=== PATIENT | female | born 1960 | race Caucasian/White ===

== ENCOUNTER 2018-09-06 09:32 | Day surgery (SDC) | payer MEDICAID ==
[~2018-09-06] VITALS: Ht 170.2 cm; Wt 158.8 kg
[~2018-09-06 09:32] MED LIST: AMI2 PO; HYDR-4134 PO; NIFE30TA83 PO; PEPJ2 PO; WARF5TAB76 PO
[2018-09-06] MEDS ORDERED: CYCL10TA7 PO (11:27)
[2018-09-06] MEDS ORDERED: CARV6.2548 PO (11:27)
[2018-09-06] MEDS ORDERED: HYDR-4009 PO (11:27)
[2018-09-06] MEDS ORDERED: HYDR-4134 PO (11:27)
[2018-09-06] MEDS ORDERED: NIFE30TA83 PO (11:27)
[2018-09-06] MEDS ORDERED: FAMO20TA8 PO (11:27)
[2018-09-06] MEDS ORDERED: WARF6TAB48 PO (11:27)
[2018-09-06 11:32] LABS: BASOPHILS % 1.1 % (0.0-2.0); EOSINOPHILS % 2.7 % (0.0-5.0); HEMATOCRIT. 36.3 % (36.0-48.0); HEMOGLOBIN. 11.7 g/dL (12.0-16.0); LYMPHOCYTES % 23.1 % (20.0-50.0); MEAN CORPUSCULAR HEMOGLOBIN 23.6 pg (28.0-32.0); MEAN CORPUSCULAR VOLUME 73.2 fL (81.0-99.0); MEAN PLATELET VOLUME 9.1 fl (7.4-10.4); MONOCYTES % 12.5 % (2.0-8.0); NEUTROPHILS % 60.6 % (40.0-76.0); PLATELET 309 x1000/uL (130-400); RED BLOOD CELL COUNT 4.95 mill/uL (4.2-5.4); RED CELL DISTRIBUTION WIDTH 20.8 % (11.6-14.6)
[2018-09-06 11:37] LABS: CHLORIDE 106 mEq/L (98-107)
[2018-09-06] MEDS ORDERED: NICARDIPINE 100MCG/ML 10ML VIAL (CATH LAB) IV ONE (11:37)
[2018-09-06] MEDS ORDERED: HEPARIN SODIUM 1,000 UNIT/1ML VIAL IV ONE (11:37)
[2018-09-06] MEDS ORDERED: NITROGLYCERIN 50MCG/ML 10ML VIAL (CATH LAB) IV ONE (11:37)
[2018-09-06 11:49] LABS: PARTIAL THROMBOPLASTIN TIME 34.8 sec (23.4-31.0)
[2018-09-06 12:02] LABS: HCG SCREEN NEGATIVE
[2018-09-06] MEDS ORDERED: LIDOCAINE HCL 1% 20ML VIAL (Pyxis) INJ ONE (12:03)
[2018-09-06] MEDS ORDERED: IOHEXOL-300 100 ML BOTTLE ONE (12:03)
[2018-09-06] MEDS ORDERED: FENTANYL CITRATE/PF 50MCG/ML 2ML VIAL ONE (12:04)
[2018-09-06] MEDS ORDERED: MIDAZOLAM HCL 2 MG/2 ML VIAL ONE (12:04)
[2018-09-06] MEDS ORDERED: MORPHINE SULFATE 4 MG/ML CPJ (NOT FOR IM USE) IV PRN (12:45)
[2018-09-06] MEDS ORDERED: ONDANSETRON HCL 4MG/2ML INJ IV PRN (12:45)
[2018-09-06] MEDS ORDERED: ACETAMINOPHEN 325MG TABLET PO PRN (12:45)
== END 2018-09-06 16:15 | disposition home or self-care (01) ==
LOC: CCL 09:32
PROVIDERS: ATTEND Internal Medicine Cardiovascular Disease
DX: Q24.5 Malformation of coronary vessels (principal); R94.39 Abnormal result of other cardiovascular function study; I11.9 Hypertensive heart disease without heart failure; E66.01 Morbid (severe) obesity due to excess calories; I08.0 Rheumatic disorders of both mitral and aortic valves; Z79.01 Long term (current) use of anticoagulants; Z79.899 Other long term (current) drug therapy; Z98.890 Other specified postprocedural states; Z68.43 Body mass index [BMI] 50.0-59.9, adult
CPT/HCPCS: 36415; 80048; 84703; 85025; 85610; 85730; 93005; 93458; 99152; C1887; J1644; J2250; J3010; J3490; Q9967; C1769; C1893; G0500

== ENCOUNTER 2020-02-14 10:09 | Inpatient (IN) | payer MEDICAID ==
[2020-02-13 12:56] VITALS: BP 157/75
[2020-02-14] VITALS (38 sets, daily range): BP systolic 108–154; BP diastolic 56–84
[~2020-02-14] VITALS: Ht 170.2 cm; Wt 190.5 kg
[~2020-02-14 10:09] MED LIST changes: -AMI2 PO; +BUPR-74 MT; +CARV12.545 MT; +CHLO25TA2 MT; +ESCI10TA61 MT; +GABA-531 MT; +HYDR-4009 PO; -HYDR-4134 PO; +HYDR-4135 MT; -NIFE30TA83 PO; +PANT20TA3 MT; -PEPJ2 PO; -WARF5TAB76 PO; +WARF6TAB48 PO
[2020-02-14] MEDS ORDERED: LORAZEPAM 2MG/ML CPJ IV ONE (10:15)
[2020-02-14] MEDS ORDERED: ONDANSETRON HCL 4MG/2ML INJ IV ONE (10:15)
[2020-02-14] MEDS ORDERED: LABETALOL 5MG/ML SYR 20 MG/4 ML SYRINGE IV ONE ×2 (10:15→10:21)
[2020-02-14] MEDS ORDERED: ONDANSETRON HCL 4MG/2ML INJ ONE (10:21)
[2020-02-14] MEDS ORDERED: IOHEXOL-350 100 ML BOTTLE ONE (10:26)
[2020-02-14 10:32] LABS: BASOPHILS % 0.6 % (0.0-2.0); EOSINOPHILS % 0.5 % (0.0-5.0); HEMOGLOBIN. 12.4 g/dL (12.0-16.0); MEAN CORPUSCULAR HEMOGLOBIN 25.6 pg (28.0-32.0); MEAN CORPUSCULAR VOLUME 80.4 fL (81.0-99.0); MEAN PLATELET VOLUME 8.6 fl (7.4-10.4); MONOCYTES % 8.6 % (2.0-8.0); NEUTROPHILS % 76.3 % (40.0-76.0); PLATELET 301 x1000/uL (130-400); RED BLOOD CELL COUNT 4.85 mill/uL (4.2-5.4); RED CELL DISTRIBUTION WIDTH 19.6 % (11.6-14.6)
[2020-02-14 10:35] LABS: CHLORIDE 104 mEq/L (98-107)
[2020-02-14 10:39] LABS: ETHANOL BLOOD < 10 mg/dL
[2020-02-14 10:40] LABS: INR 0.9; PROTHROMBIN TIME 10.3 sec (9.6-11.0)
[2020-02-14 10:42] LABS: LDL CHOLESTEROL 138 mg/dL (5-100)
[2020-02-14] MEDS ORDERED: NICARDIPINE 40MG/200ML PREMIX 200 ML IV STA (10:42)
[2020-02-14 10:44] LABS: CREATINE KINASE 75 IU/L (26-192)
[2020-02-14] MEDS ORDERED: DEXAMETHASONE 10 MG/ML VIAL IV ONE (10:45)
[2020-02-14] MEDS ORDERED: LEVETIRACETAM 500MG PREMIX 100 ML IV ONE (10:45)
[2020-02-14] MEDS ORDERED: MANNITOL 12.5G (25%) VIAL 50ML IV ONE (10:45)
[2020-02-14] MEDS ORDERED: VECURONIUM BROMIDE 10 MG/VIAL IV ONE ×2 (11:15→12:39)
[2020-02-14] MEDS ORDERED: ETOMIDATE 2MG/ML 10ML VIAL IV ONE (11:15)
[2020-02-14] MEDS ORDERED: SUCCINYLCHOLINE CHLORIDE 200MG/10ML IV ONE (11:15)
[2020-02-14] MEDS ORDERED: PROPOFOL 10MG/ML 100ML 100 ML IV ONE (11:15)
[2020-02-14] MEDS ORDERED: BACITRACIN 15GM TUBE TOP ONE (11:16)
[2020-02-14] MEDS ORDERED: THROMBIN (BOVINE) 5000 UNITS/VIAL TOP ONE (11:16)
[2020-02-14] MEDS ORDERED: NORMAL SALINE 0.9% 10 ML SYR ONE (11:16)
[2020-02-14] MEDS ORDERED: LIDOCAINE HCL/EPINEPHRINE 1%-EPI 1:100,000 20 ML VIAL ONE (11:17)
[2020-02-14] MEDS ORDERED: BACITRACIN 50,000 UNITS/VIAL ONE (11:17)
[2020-02-14] MEDS ORDERED: LACTATED RINGERS 3,000 ML IV ONE (11:17)
[2020-02-14 11:31] LABS: BG CARBOXYHEMOGLOBIN 0.3 % (0.5-1.5); BG DEOXYHEMOGLOBIN 0.5 % (0.0-5.0); BG FRACTION INSPIRED OXYGEN 100; BG HCO3 ACT 24.5 mmol/L (22.0-26.0); BG METHEMOGLOBIN 0.2 % (0.0-1.5); BG OXYGEN SATURATION 99.5 % (92.0-98.5); BG PCO2 39.1 mmHg (35.0-45.0); BG PH 7.414 (7.350-7.450); BG PO2 344.5 mmHg (75.0-100.0); BG SAMPLE SITE RIGHT RADIAL; BG TIDAL VOLUME(mL) 650 mL; BG TOTAL HEMOGLOBIN 12.4 g/dL (12.0-18.0); BG VENT MODE VENT - A/C; BG VENT RATE 18 set
[2020-02-14] MEDS ORDERED: ONDANSETRON HCL 4MG/2ML INJ IV PRN (11:45)
[2020-02-14] MEDS ORDERED: DEXT 5%/LACTATED RINGERS 1,000 ML IV SCH (11:45)
[2020-02-14] MEDS ORDERED: LEVETIRACETAM 500 MG in SODIUM CHLORIDE 0.9% 100 ML IV SCH (11:45)
[2020-02-14] MEDS ORDERED: PROPOFOL 200MG/20ML VIAL IV ONE (12:17)
[2020-02-14] MEDS ORDERED: GLYCOPYRROLATE 0.2 MG/ML 2ML VIAL ONE (12:38)
[2020-02-14] MEDS ORDERED: EPHEDRINE SULFATE 50MG/ML VIAL ONE (12:39)
[2020-02-14] MEDS ORDERED: SODIUM CHLORIDE 0.9% 10ML VIAL ONE (12:39)
[2020-02-14] MEDS ORDERED: CEFAZOLIN SODIUM 1000MG/VIAL ONE (12:39)
[2020-02-14] MEDS ORDERED: MORPHINE SULFATE 2 MG/ML CPJ (NOT FOR IM USE) IV PRN (12:45)
[2020-02-14] MEDS: DEXT 5%/LACTATED RINGERS 1,000 ML IV SCH (13:30)
[2020-02-14] MEDS ORDERED: NICARDIPINE 100 MG in SODIUM CHLORIDE 0.9% 60 ML IV PRN ×4 (13:30)
[2020-02-14 13:50] LABS: BG BASE EXCESS 1.1 mmol/L (-2.0-2.0); BG DEOXYHEMOGLOBIN 2.6 % (0.0-5.0); BG FRACTION INSPIRED OXYGEN 100; BG HCO3 ACT 25.7 mmol/L (22.0-26.0); BG METHEMOGLOBIN 0.2 % (0.0-1.5); BG OXYGEN SATURATION 97.4 % (92.0-98.5); BG OXYHEMOGLOBIN 97.2 % (94.0-97.0); BG PCO2 40.9 mmHg (35.0-45.0); BG PH 7.416 (7.350-7.450); BG PO2 96.1 mmHg (75.0-100.0); BG SAMPLE SITE RIGHT RADIAL; BG TIDAL VOLUME(mL) 600 mL; BG TOTAL HEMOGLOBIN 12.6 g/dL (12.0-18.0); BG VENT MODE VENT - A/C; BG VENT RATE 18 set
[2020-02-14] MEDS: NICARDIPINE 100 MG in SODIUM CHLORIDE 0.9% 60 ML IV PRN ×2 (14:45→20:48)
[2020-02-14] MEDS ORDERED: MIDAZOLAM HCL 50 MG in DEXTROSE 5% WATER 40 ML IV PRN (15:15)
[2020-02-14] MEDS ORDERED: FENTANYL CITRATE/PF 500 MCG in SODIUM CHLORIDE 0.9% 40 ML IV PRN (17:00)
[2020-02-14] MEDS: FENTANYL 1,000 MCG in SODIUM CHLORIDE 0.9% 100 ML IV PRN (17:49)
[2020-02-14] MEDS: ATORVASTATIN CALCIUM 40MG TABLET PO SCH (20:48)
[2020-02-14] MEDS: MIDAZOLAM HCL 100 MG in DEXT 5% WATER 80 ML IV PRN (20:49)
[2020-02-14] MEDS: LEVETIRACETAM 500MG PREMIX 100 ML IV SCH (20:49)
[2020-02-14] MEDS: CEFAZOLIN 1000MG PREMIX 50 ML IV SCH (21:17)
[2020-02-14 23:06] LABS: CLARITY URINE CLEAR (CLEAR); COLOR URINE YELLOW (YELLOW); KETONES URINE NEGATIVE (NEGATIVE); LEUKOCYTE ESTERASE URINE NEGATIVE (NEGATIVE); NITRITE URINE NEGATIVE (NEGATIVE); OCCULT BLOOD URINE 2+ (NEGATIVE); PH URINE 5.5 (4.5-8.0); PROTEIN URINE 2+ (NEGATIVE); SPECIFIC GRAVITY URINE 1.026 (1.005-1.030); UROBILINOGEN URINE 0.2 E.U./dL (0.2-1.0)
[2020-02-14 23:16] LABS: *AMPHETAMINES SCREEN URINE NEGATIVE (NEGATIVE); *BARBITURATES SCREEN URINE NEGATIVE (NEGATIVE); *BENZODIAZEPINES SCREEN URINE PRESUMTIVE POSITIVE (NEGATIVE); *COCAINE SCREEN URINE NEGATIVE (NEGATIVE)
[2020-02-14 23:17] LABS: CANNABINOID URINE SCREEN NEGATIVE (NEGATIVE); METHADONE URINE SCREEN NEGATIVE (NEGATIVE); OPIATES URINE SCREEN PRESUMTIVE POSITIVE (NEGATIVE); PHENCYCLIDINE URINE SCREEN NEGATIVE (NEGATIVE)
[2020-02-15] VITALS (87 sets, daily range): BP systolic 93–134; BP diastolic 48–78
[2020-02-15] MEDS: MORPHINE SULFATE 4 MG/ML CPJ (NOT FOR IM USE) IV PRN ×2 (00:55→21:17)
[2020-02-15] MEDS: NICARDIPINE 100 MG in SODIUM CHLORIDE 0.9% 60 ML IV PRN (03:47)
[2020-02-15] MEDS: CEFAZOLIN 1000MG PREMIX 50 ML IV SCH ×3 (04:14→23:16)
[2020-02-15 05:24] LABS: HEMATOCRIT. 32.1 % (36.0-48.0); HEMOGLOBIN. 10.5 g/dL (12.0-16.0); MEAN CORPUSCULAR HEMOGLOBIN 25.8 pg (28.0-32.0); MEAN CORPUSCULAR VOLUME 78.6 fL (81.0-99.0); MEAN PLATELET VOLUME 8.7 fl (7.4-10.4); PLATELET 260 x1000/uL (130-400); RED BLOOD CELL COUNT 4.08 mill/uL (4.2-5.4); RED CELL DISTRIBUTION WIDTH 19.6 % (11.6-14.6)
[2020-02-15] MEDS: MIDAZOLAM HCL 100 MG in DEXT 5% WATER 80 ML IV PRN ×2 (07:13→17:30)
[2020-02-15] MEDS: FENTANYL 1,000 MCG in SODIUM CHLORIDE 0.9% 100 ML IV PRN ×3 (07:14→20:42)
[2020-02-15 07:50] LABS: BG BASE EXCESS 1.3 mmol/L (-2.0-2.0); BG CARBOXYHEMOGLOBIN 0.3 % (0.5-1.5); BG DEOXYHEMOGLOBIN 6.8 % (0.0-5.0); BG FRACTION INSPIRED OXYGEN 80; BG HCO3 ACT 26.3 mmol/L (22.0-26.0); BG METHEMOGLOBIN 0.2 % (0.0-1.5); BG OXYGEN SATURATION 93.2 % (92.0-98.5); BG OXYHEMOGLOBIN 92.7 % (94.0-97.0); BG PCO2 43.3 mmHg (35.0-45.0); BG PH 7.402 (7.350-7.450); BG PO2 69.5 mmHg (75.0-100.0); BG SAMPLE SITE RIGHT RADIAL; BG TIDAL VOLUME(mL) 500 mL; BG TOTAL HEMOGLOBIN 11.4 g/dL (12.0-18.0); BG VENT MODE VENT - A/C; BG VENT RATE 18 set
[2020-02-15] MEDS ORDERED: LIDOCAINE HCL 1% 20ML VIAL (Pyxis) INJ ONE (08:07)
[2020-02-15 09:00] LABS: NUCLEATED RED BLOOD CELLS 1 /100 WBC
[2020-02-15 09:01] LABS: PLATELET ESTIMATE NORMAL
[2020-02-15] MEDS: DEXT 5%/LACTATED RINGERS 1,000 ML IV SCH ×2 (09:26→23:15)
[2020-02-15] MEDS: LEVETIRACETAM 500MG PREMIX 100 ML IV SCH ×2 (09:26→23:15)
[2020-02-15] MEDS: PANTOPRAZOLE SODIUM 40 MG/VIAL IV SCH (09:44)
[2020-02-15] MEDS: ATORVASTATIN CALCIUM 40MG TABLET PO SCH (20:39)
[2020-02-16] VITALS (100 sets, daily range): BP systolic 70–142; BP diastolic 30–78
[2020-02-16] MEDS: MORPHINE SULFATE 4 MG/ML CPJ (NOT FOR IM USE) IV PRN (00:14)
[2020-02-16] MEDS: NICARDIPINE 100 MG in SODIUM CHLORIDE 0.9% 60 ML IV PRN ×2 (03:11→19:49)
[2020-02-16] MEDS: MIDAZOLAM HCL 100 MG in DEXT 5% WATER 80 ML IV PRN ×2 (04:21→23:46)
[2020-02-16 07:23] LABS: HEMATOCRIT. 31.7 % (36.0-48.0); HEMOGLOBIN. 10.3 g/dL (12.0-16.0); MEAN CORPUSCULAR HEMOGLOBIN 25.7 pg (28.0-32.0); MEAN CORPUSCULAR VOLUME 79.2 fL (81.0-99.0); MEAN PLATELET VOLUME 8.9 fl (7.4-10.4); PLATELET 242 x1000/uL (130-400); RED CELL DISTRIBUTION WIDTH 19.5 % (11.6-14.6)
[2020-02-16] MEDS: CEFAZOLIN 1000MG PREMIX 50 ML IV SCH ×2 (09:08→16:02)
[2020-02-16] MEDS: LEVETIRACETAM 500MG PREMIX 100 ML IV SCH ×2 (09:08→20:57)
[2020-02-16 09:13] LABS: BG BASE EXCESS 1.3 mmol/L (-2.0-2.0); BG CARBOXYHEMOGLOBIN 0.3 % (0.5-1.5); BG DEOXYHEMOGLOBIN 3.6 % (0.0-5.0); BG FRACTION INSPIRED OXYGEN 80; BG HCO3 ACT 25.8 mmol/L (22.0-26.0); BG METHEMOGLOBIN 0.2 % (0.0-1.5); BG OXYGEN SATURATION 96.4 % (92.0-98.5); BG OXYHEMOGLOBIN 95.9 % (94.0-97.0); BG PCO2 40.5 mmHg (35.0-45.0); BG PH 7.422 (7.350-7.450); BG PO2 91.6 mmHg (75.0-100.0); BG SAMPLE SITE RIGHT RADIAL; BG TIDAL VOLUME(mL) 500 mL; BG TOTAL HEMOGLOBIN 11.6 g/dL (12.0-18.0); BG VENT MODE VENT - A/C; BG VENT RATE 18 set
[2020-02-16] MEDS: PANTOPRAZOLE SODIUM 40 MG/VIAL IV SCH (09:17)
[2020-02-16] MEDS: FENTANYL 1,000 MCG in SODIUM CHLORIDE 0.9% 100 ML IV PRN (10:00)
[2020-02-16] MEDS: LOSARTAN POTASSIUM 100 MG TABLET PO SCH (15:19)
[2020-02-16] MEDS: DEXT 5%/LACTATED RINGERS 1,000 ML IV SCH (15:20)
[2020-02-16] MEDS: ATORVASTATIN CALCIUM 40MG TABLET PO SCH (20:57)
[2020-02-16] MEDS: AMLODIPINE 5MG TABLET PO SCH (21:00)
[2020-02-16 23:16] LABS: PLATELET ESTIMATE NORMAL
[2020-02-17] VITALS (98 sets, daily range): BP systolic 90–151; BP diastolic 32–103
[2020-02-17] MEDS ORDERED: SODIUM CHLORIDE 0.9% 500 ML IV NR (02:30)
[2020-02-17 06:25] LABS: HEMATOCRIT. 32.8 % (36.0-48.0); HEMOGLOBIN. 10.6 g/dL (12.0-16.0); MEAN CORPUSCULAR HEMOGLOBIN 26.1 pg (28.0-32.0); MEAN CORPUSCULAR VOLUME 80.9 fL (81.0-99.0); MEAN PLATELET VOLUME 8.7 fl (7.4-10.4); PLATELET 201 x1000/uL (130-400); RED BLOOD CELL COUNT 4.05 mill/uL (4.2-5.4); RED CELL DISTRIBUTION WIDTH 19.5 % (11.6-14.6)
[2020-02-17] MEDS: DEXT 5%/LACTATED RINGERS 1,000 ML IV SCH ×2 (06:34→08:59)
[2020-02-17] MEDS: LEVETIRACETAM 500MG PREMIX 100 ML IV SCH ×2 (09:00→20:36)
[2020-02-17] MEDS: CEFAZOLIN 1000MG PREMIX 50 ML IV SCH ×4 (09:00→23:09)
[2020-02-17] MEDS: PANTOPRAZOLE SODIUM 40 MG/VIAL IV SCH (09:01)
[2020-02-17] MEDS: LOSARTAN POTASSIUM 100 MG TABLET PO SCH (09:02)
[2020-02-17] MEDS: AMLODIPINE 5MG TABLET PO SCH ×2 (09:02→20:35)
[2020-02-17 11:41] LABS: PLATELET ESTIMATE NORMAL
[2020-02-17] MEDS: FENTANYL 1,000 MCG in SODIUM CHLORIDE 0.9% 100 ML IV PRN (15:23)
[2020-02-17] MEDS: HYDRALAZINE HCL 100MG TABLET PO SCH ×2 (15:27→21:05)
[2020-02-17] MEDS: ATORVASTATIN CALCIUM 40MG TABLET PO SCH (20:35)
[2020-02-18] VITALS (95 sets, daily range): BP systolic 101–190; BP diastolic 17–122
[2020-02-18] MEDS: MORPHINE SULFATE 4 MG/ML CPJ (NOT FOR IM USE) IV PRN ×2 (00:53→12:45)
[2020-02-18] MEDS: NICARDIPINE 100 MG in SODIUM CHLORIDE 0.9% 60 ML IV PRN ×2 (01:14→16:30)
[2020-02-18] MEDS: DEXT 5%/LACTATED RINGERS 1,000 ML IV SCH ×3 (02:26→20:00)
[2020-02-18] MEDS: HYDRALAZINE HCL 100MG TABLET PO SCH ×3 (05:00→21:04)
[2020-02-18 06:35] LABS: HEMATOCRIT. 31.5 % (36.0-48.0); HEMOGLOBIN. 10.3 g/dL (12.0-16.0); MEAN CORPUSCULAR HEMOGLOBIN 26.1 pg (28.0-32.0); MEAN CORPUSCULAR VOLUME 79.3 fL (81.0-99.0); MEAN PLATELET VOLUME 8.9 fl (7.4-10.4); RED BLOOD CELL COUNT 3.97 mill/uL (4.2-5.4); RED CELL DISTRIBUTION WIDTH 19.6 % (11.6-14.6)
[2020-02-18 06:46] LABS: BG BASE EXCESS -0.6 mmol/L (-2.0-2.0); BG CARBOXYHEMOGLOBIN 0.3 % (0.5-1.5); BG DEOXYHEMOGLOBIN 2.5 % (0.0-5.0); BG HCO3 ACT 23.8 mmol/L (22.0-26.0); BG METHEMOGLOBIN 0.1 % (0.0-1.5); BG OXYGEN SATURATION 97.5 % (92.0-98.5); BG OXYHEMOGLOBIN 97.1 % (94.0-97.0); BG PCO2 37.9 mmHg (35.0-45.0); BG PH 7.415 (7.350-7.450); BG PO2 99.9 mmHg (75.0-100.0); BG SAMPLE SITE RIGHT BRACHIAL; BG TIDAL VOLUME(mL) 500 mL; BG TOTAL HEMOGLOBIN 10.6 g/dL (12.0-18.0); BG VENT MODE VENT - A/C; BG VENT RATE 18 set
[2020-02-18] MEDS: AMLODIPINE 5MG TABLET PO SCH ×2 (08:48→21:05)
[2020-02-18] MEDS: PANTOPRAZOLE SODIUM 40 MG/VIAL IV SCH (08:48)
[2020-02-18] MEDS: CEFAZOLIN 1000MG PREMIX 50 ML IV SCH ×3 (08:48→23:10)
[2020-02-18] MEDS: LEVETIRACETAM 500MG PREMIX 100 ML IV SCH ×2 (08:48→21:04)
[2020-02-18] MEDS ORDERED: MORPHINE SULFATE 4 MG/ML CPJ (NOT FOR IM USE) IV PRN (13:15)
[2020-02-18 14:02] LABS: PLATELET ESTIMATE NORMAL
[2020-02-18 14:03] LABS: PLATELET 193 x1000/uL (130-400)
[2020-02-18] MEDS: CLONIDINE 0.1MG TABLET PO SCH (16:52)
[2020-02-18] MEDS: ATORVASTATIN CALCIUM 40MG TABLET PO SCH (21:04)
[2020-02-19] VITALS (98 sets, daily range): BP systolic 117–163; BP diastolic 61–84
[2020-02-19] MEDS: NICARDIPINE 100 MG in SODIUM CHLORIDE 0.9% 60 ML IV PRN ×2 (01:21→17:56)
[2020-02-19] MEDS: HYDRALAZINE HCL 100MG TABLET PO SCH ×3 (05:18→22:59)
[2020-02-19 06:18] LABS: HEMATOCRIT. 31.8 % (36.0-48.0); HEMOGLOBIN. 10.6 g/dL (12.0-16.0); MEAN CORPUSCULAR HEMOGLOBIN 26.6 pg (28.0-32.0); MEAN CORPUSCULAR VOLUME 79.8 fL (81.0-99.0); MEAN PLATELET VOLUME 9.4 fl (7.4-10.4); PLATELET 192 x1000/uL (130-400); RED BLOOD CELL COUNT 3.99 mill/uL (4.2-5.4)
[2020-02-19] MEDS: DEXT 5%/LACTATED RINGERS 1,000 ML IV SCH ×2 (07:29→17:49)
[2020-02-19] MEDS: CEFAZOLIN 1000MG PREMIX 50 ML IV SCH ×2 (09:00→17:13)
[2020-02-19] MEDS: LEVETIRACETAM 500MG PREMIX 100 ML IV SCH ×2 (10:00→20:24)
[2020-02-19] MEDS: PANTOPRAZOLE SODIUM 40 MG/VIAL IV SCH (10:00)
[2020-02-19] MEDS: AMLODIPINE 5MG TABLET PO SCH ×2 (10:00→20:24)
[2020-02-19] MEDS: CLONIDINE 0.1MG TABLET PO SCH ×2 (10:00→17:10)
[2020-02-19 16:28] LABS: PLATELET ESTIMATE NORMAL
[2020-02-19] MEDS: ATORVASTATIN CALCIUM 40MG TABLET PO SCH (20:24)
[2020-02-20] VITALS (88 sets, daily range): BP systolic 116–164; BP diastolic 56–89
[2020-02-20] MEDS: NICARDIPINE 100 MG in SODIUM CHLORIDE 0.9% 60 ML IV PRN ×3 (02:03→17:15)
[2020-02-20] MEDS: DEXT 5%/LACTATED RINGERS 1,000 ML IV SCH ×3 (03:49→23:49)
[2020-02-20] MEDS: HYDRALAZINE HCL 100MG TABLET PO SCH ×3 (06:51→22:15)
[2020-02-20] MEDS: LEVETIRACETAM 500MG PREMIX 100 ML IV SCH ×2 (07:51→20:56)
[2020-02-20] MEDS: MORPHINE SULFATE 4 MG/ML CPJ (NOT FOR IM USE) IV PRN (07:51)
[2020-02-20] MEDS: PANTOPRAZOLE SODIUM 40 MG/VIAL IV SCH (07:52)
[2020-02-20] MEDS: CLONIDINE 0.1MG TABLET PO SCH (07:52)
[2020-02-20] MEDS: AMLODIPINE 5MG TABLET PO SCH ×2 (07:52→20:56)
[2020-02-20 09:03] LABS: BG BASE EXCESS 0.6 mmol/L (-2.0-2.0); BG CARBOXYHEMOGLOBIN 0.3 % (0.5-1.5); BG DEOXYHEMOGLOBIN 3.4 % (0.0-5.0); BG FRACTION INSPIRED OXYGEN 65; BG HCO3 ACT 23.1 mmol/L (22.0-26.0); BG METHEMOGLOBIN 0.3 % (0.0-1.5); BG OXYGEN SATURATION 96.6 % (92.0-98.5); BG PCO2 30.2 mmHg (35.0-45.0); BG PH 7.502 (7.350-7.450); BG PO2 88.3 mmHg (75.0-100.0); BG SAMPLE SITE RIGHT RADIAL; BG TIDAL VOLUME(mL) 500 mL; BG TOTAL HEMOGLOBIN 11.2 g/dL (12.0-18.0); BG VENT MODE VENT - A/C; BG VENT RATE 18 set
[2020-02-20] MEDS: CLONIDINE 0.1MG TABLET PO PRN (14:37)
[2020-02-20] MEDS: CLONIDINE 0.2MG TABLET PO SCH ×2 (14:41→22:15)
[2020-02-20] MEDS: ATORVASTATIN CALCIUM 40MG TABLET PO SCH (20:55)
[2020-02-21] VITALS (91 sets, daily range): BP systolic 104–163; BP diastolic 45–84
[2020-02-21] MEDS: NICARDIPINE 100 MG in SODIUM CHLORIDE 0.9% 60 ML IV PRN ×3 (01:23→20:25)
[2020-02-21] MEDS: CLONIDINE 0.2MG TABLET PO SCH (05:44)
[2020-02-21] MEDS: HYDRALAZINE HCL 100MG TABLET PO SCH ×3 (05:44→21:12)
[2020-02-21 06:34] LABS: HEMATOCRIT. 33.6 % (36.0-48.0); HEMOGLOBIN. 10.9 g/dL (12.0-16.0); MEAN CORPUSCULAR HEMOGLOBIN 26.1 pg (28.0-32.0); MEAN CORPUSCULAR VOLUME 80.5 fL (81.0-99.0); PLATELET 182 x1000/uL (130-400); RED BLOOD CELL COUNT 4.17 mill/uL (4.2-5.4); RED CELL DISTRIBUTION WIDTH 20.2 % (11.6-14.6)
[2020-02-21] MEDS: LEVETIRACETAM 500MG PREMIX 100 ML IV SCH ×2 (09:29→20:25)
[2020-02-21] MEDS: DEXT 5%/LACTATED RINGERS 1,000 ML IV SCH (09:30)
[2020-02-21] MEDS: PANTOPRAZOLE SODIUM 40 MG/VIAL IV SCH (09:30)
[2020-02-21] MEDS: AMLODIPINE 5MG TABLET PO SCH ×2 (09:30→20:25)
[2020-02-21] MEDS: MORPHINE SULFATE 4 MG/ML CPJ (NOT FOR IM USE) IV PRN ×2 (12:01→18:01)
[2020-02-21] MEDS: CLONIDINE 0.3MG TABLET PO SCH ×2 (13:32→21:12)
[2020-02-21 14:20] LABS: PLATELET ESTIMATE NORMAL
[2020-02-21] MEDS: ATORVASTATIN CALCIUM 40MG TABLET PO SCH (20:25)
[2020-02-22] VITALS (94 sets, daily range): BP systolic 118–168; BP diastolic 55–99
[2020-02-22] MEDS: DEXT 5%/LACTATED RINGERS 1,000 ML IV SCH ×2 (01:09→12:35)
[2020-02-22] MEDS: NICARDIPINE 100 MG in SODIUM CHLORIDE 0.9% 60 ML IV PRN ×3 (04:21→17:10)
[2020-02-22] MEDS: HYDRALAZINE HCL 100MG TABLET PO SCH ×3 (05:25→23:18)
[2020-02-22] MEDS: CLONIDINE 0.3MG TABLET PO SCH ×3 (05:25→23:18)
[2020-02-22] MEDS: MORPHINE SULFATE 4 MG/ML CPJ (NOT FOR IM USE) IV PRN ×2 (05:36→12:11)
[2020-02-22 06:05] LABS: INR 1.1; PROTHROMBIN TIME 11.4 sec (9.6-11.0)
[2020-02-22 06:13] LABS: HEMATOCRIT. 30.5 % (36.0-48.0); HEMOGLOBIN. 10.1 g/dL (12.0-16.0); MEAN CORPUSCULAR HEMOGLOBIN 26.4 pg (28.0-32.0); MEAN CORPUSCULAR VOLUME 79.5 fL (81.0-99.0); MEAN PLATELET VOLUME 9.3 fl (7.4-10.4); PLATELET 185 x1000/uL (130-400); RED BLOOD CELL COUNT 3.84 mill/uL (4.2-5.4); RED CELL DISTRIBUTION WIDTH 19.3 % (11.6-14.6)
[2020-02-22] MEDS: PANTOPRAZOLE SODIUM 40 MG/VIAL IV SCH (08:18)
[2020-02-22] MEDS: LEVETIRACETAM 500MG PREMIX 100 ML IV SCH ×2 (08:18→23:17)
[2020-02-22] MEDS: AMLODIPINE 5MG TABLET PO SCH ×2 (08:18→21:02)
[2020-02-22 09:09] LABS: BG BASE EXCESS 0.5 mmol/L (-2.0-2.0); BG CARBOXYHEMOGLOBIN 0.3 % (0.5-1.5); BG DEOXYHEMOGLOBIN 3.6 % (0.0-5.0); BG FRACTION INSPIRED OXYGEN 60; BG HCO3 ACT 23.6 mmol/L (22.0-26.0); BG METHEMOGLOBIN 0.3 % (0.0-1.5); BG OXYGEN SATURATION 96.4 % (92.0-98.5); BG OXYHEMOGLOBIN 95.8 % (94.0-97.0); BG PCO2 32.3 mmHg (35.0-45.0); BG PH 7.482 (7.350-7.450); BG SAMPLE SITE RIGHT RADIAL; BG TIDAL VOLUME(mL) 500 mL; BG VENT MODE VENT - A/C; BG VENT RATE 14 set
[2020-02-22 09:55] LABS: PLATELET ESTIMATE NORMAL
[2020-02-22] MEDS ORDERED: PIPERACILLIN/TAZOBACTAM 3.375 G in DEXT 5% WATER 100 ML IV SCH (12:15)
[2020-02-22] MEDS ORDERED: BACTERIOSTATIC SODIUM CHLORIDE 0.9% 30ML VIAL IJ ONE (12:49)
[2020-02-22] MEDS ORDERED: LIDOCAINE HCL/EPINEPHRINE 1%-EPI 1:100,000 20 ML VIAL ONE (13:12)
[2020-02-22] MEDS: PIPERACILLIN SODIUM/TAZOBACTAM 4.5 G in DEXT 5% WATER 100 ML IV SCH ×2 (13:16→21:01)
[2020-02-22] MEDS ORDERED: MIDAZOLAM HCL 2 MG/2 ML VIAL ONE (13:24)
[2020-02-22] MEDS ORDERED: ROCURONIUM BROMIDE 10MG/ML VIAL 5ML IV ONE (13:24)
[2020-02-22] MEDS: CLONIDINE 0.1MG TABLET PO PRN (15:15)
[2020-02-22] MEDS: ATORVASTATIN CALCIUM 40MG TABLET PO SCH (21:01)
[2020-02-22] MEDS: MINOXIDIL 2.5MG TABLET PO SCH (21:02)
[2020-02-22] MEDS: METOPROLOL TARTRATE 50MG TABLET PO SCH (21:05)
[2020-02-22] MEDS: IPRATROPIUM/ALBUTEROL 0.5-3(2.5)MG/3ML NEB HHN PRN (21:32)
[2020-02-23] VITALS (89 sets, daily range): BP systolic 101–158; BP diastolic 47–82
[2020-02-23] MEDS: PIPERACILLIN SODIUM/TAZOBACTAM 4.5 G in DEXT 5% WATER 100 ML IV SCH ×4 (02:43→22:43)
[2020-02-23] MEDS: IPRATROPIUM/ALBUTEROL 0.5-3(2.5)MG/3ML NEB HHN PRN (04:27)
[2020-02-23] MEDS: HYDRALAZINE HCL 100MG TABLET PO SCH ×3 (05:40→22:00)
[2020-02-23] MEDS: CLONIDINE 0.3MG TABLET PO SCH ×3 (05:41→22:00)
[2020-02-23 06:24] LABS: HEMATOCRIT. 31.3 % (36.0-48.0); HEMOGLOBIN. 10.2 g/dL (12.0-16.0); MEAN CORPUSCULAR HEMOGLOBIN 26.2 pg (28.0-32.0); MEAN CORPUSCULAR VOLUME 80.7 fL (81.0-99.0); MEAN PLATELET VOLUME 9.2 fl (7.4-10.4); PLATELET 194 x1000/uL (130-400); RED BLOOD CELL COUNT 3.87 mill/uL (4.2-5.4); RED CELL DISTRIBUTION WIDTH 20.4 % (11.6-14.6)
[2020-02-23 08:33] LABS: BG BASE EXCESS 0.4 mmol/L (-2.0-2.0); BG CARBOXYHEMOGLOBIN 0.3 % (0.5-1.5); BG FRACTION INSPIRED OXYGEN 60; BG HCO3 ACT 22.8 mmol/L (22.0-26.0); BG METHEMOGLOBIN 0.3 % (0.0-1.5); BG OXYHEMOGLOBIN 96.4 % (94.0-97.0); BG PCO2 29.3 mmHg (35.0-45.0); BG PH 7.508 (7.350-7.450); BG PO2 91.9 mmHg (75.0-100.0); BG SAMPLE SITE RIGHT BRACHIAL; BG TIDAL VOLUME(mL) 500 mL; BG TOTAL HEMOGLOBIN 10.6 g/dL (12.0-18.0); BG VENT MODE VENT - A/C; BG VENT RATE 14 set
[2020-02-23 08:33] LABS: PLATELET ESTIMATE NORMAL
[2020-02-23] MEDS: LEVETIRACETAM 500MG PREMIX 100 ML IV SCH ×2 (09:10→23:33)
[2020-02-23] MEDS: PANTOPRAZOLE SODIUM 40 MG/VIAL IV SCH (09:11)
[2020-02-23] MEDS: AMLODIPINE 5MG TABLET PO SCH ×2 (09:13→21:00)
[2020-02-23] MEDS: METOPROLOL TARTRATE 50MG TABLET PO SCH ×2 (09:14→21:00)
[2020-02-23] MEDS ORDERED: FUROSEMIDE 20MG/2ML VIAL IVP NR (09:15)
[2020-02-23] MEDS: MINOXIDIL 2.5MG TABLET PO SCH ×2 (09:46→21:00)
[2020-02-23] MEDS: DOCUSATE SODIUM 250MG CAPSULE PO SCH (09:46)
[2020-02-23] MEDS: DEXT 5%/LACTATED RINGERS 1,000 ML IV SCH (09:48)
[2020-02-23] MEDS: NICARDIPINE 100 MG in SODIUM CHLORIDE 0.9% 60 ML IV PRN (09:56)
[2020-02-23] MEDS: ACETYLCYSTEINE 100MG/ML 10% VIAL 4ML INH SCH (12:00)
[2020-02-23] MEDS: IPRATROPIUM/ALBUTEROL 0.5-3(2.5)MG/3ML NEB HHN SCH ×2 (12:17→20:50)
[2020-02-23] MEDS ORDERED: FENTANYL CITRATE/PF 50MCG/ML 2ML VIAL ONE (13:05)
[2020-02-23] MEDS ORDERED: MIDAZOLAM HCL 5 MG/5 ML VIAL ONE (13:05)
[2020-02-23] MEDS ORDERED: MIDAZOLAM HCL 5 MG/5 ML VIAL IV PRN (13:39)
[2020-02-23] MEDS ORDERED: FENTANYL CITRATE/PF 50MCG/ML 2ML VIAL IV PRN (13:40)
[2020-02-23] MEDS: ATORVASTATIN CALCIUM 40MG TABLET PO SCH (21:00)
[2020-02-24] VITALS (35 sets, daily range): BP systolic 98–150; BP diastolic 53–92
[2020-02-24] MEDS: PIPERACILLIN SODIUM/TAZOBACTAM 4.5 G in DEXT 5% WATER 100 ML IV SCH ×4 (02:27→21:24)
[2020-02-24] MEDS: IPRATROPIUM/ALBUTEROL 0.5-3(2.5)MG/3ML NEB HHN SCH ×4 (02:42→20:43)
[2020-02-24] MEDS: HYDRALAZINE HCL 100MG TABLET PO SCH ×3 (05:07→21:32)
[2020-02-24] MEDS: CLONIDINE 0.3MG TABLET PO SCH ×3 (05:07→22:00)
[2020-02-24 07:17] LABS: HEMATOCRIT. 27.2 % (36.0-48.0); HEMOGLOBIN. 8.8 g/dL (12.0-16.0); MEAN CORPUSCULAR HEMOGLOBIN 26.3 pg (28.0-32.0); MEAN PLATELET VOLUME 9.2 fl (7.4-10.4); PLATELET 167 x1000/uL (130-400); RED BLOOD CELL COUNT 3.36 mill/uL (4.2-5.4); RED CELL DISTRIBUTION WIDTH 19.6 % (11.6-14.6)
[2020-02-24] MEDS: PANTOPRAZOLE SODIUM 40 MG/VIAL IV SCH (08:43)
[2020-02-24] MEDS: DOCUSATE SODIUM 250MG CAPSULE PO SCH (08:43)
[2020-02-24] MEDS: LEVETIRACETAM 500MG PREMIX 100 ML IV SCH ×2 (08:43→21:24)
[2020-02-24] MEDS: METOPROLOL TARTRATE 50MG TABLET PO SCH ×3 (08:44→21:32)
[2020-02-24] MEDS: AMLODIPINE 5MG TABLET PO SCH ×3 (08:44→21:26)
[2020-02-24] MEDS: MINOXIDIL 2.5MG TABLET PO SCH ×2 (09:00→21:00)
[2020-02-24] MEDS ORDERED: POTASSIUM CHLORIDE 20MEQ TABLET SR PO NR (12:00)
[2020-02-24] MEDS: DEXTROSE 5% WATER 1,000 ML IV SCH (12:36)
[2020-02-24 13:09] LABS: PLATELET ESTIMATE NORMAL
[2020-02-24] MEDS: ACETYLCYSTEINE 100MG/ML 10% VIAL 4ML INH SCH (14:10)
[2020-02-24] MEDS: ATORVASTATIN CALCIUM 40MG TABLET PO SCH (21:24)
[2020-02-25] VITALS (26 sets, daily range): BP systolic 101–166; BP diastolic 50–82
[2020-02-25] MEDS: IPRATROPIUM/ALBUTEROL 0.5-3(2.5)MG/3ML NEB HHN SCH ×4 (01:44→19:52)
[2020-02-25] MEDS: ACETYLCYSTEINE 100MG/ML 10% VIAL 4ML INH SCH ×3 (01:44→19:52)
[2020-02-25] MEDS: PIPERACILLIN SODIUM/TAZOBACTAM 4.5 G in DEXT 5% WATER 100 ML IV SCH ×4 (02:27→21:27)
[2020-02-25] MEDS: CLONIDINE 0.3MG TABLET PO SCH ×3 (05:52→23:24)
[2020-02-25] MEDS: HYDRALAZINE HCL 100MG TABLET PO SCH ×3 (05:52→22:50)
[2020-02-25 07:56] LABS: HEMATOCRIT. 27.4 % (36.0-48.0); HEMOGLOBIN. 8.9 g/dL (12.0-16.0); MEAN CORPUSCULAR HEMOGLOBIN 26.3 pg (28.0-32.0); MEAN CORPUSCULAR VOLUME 80.3 fL (81.0-99.0); MEAN PLATELET VOLUME 9.7 fl (7.4-10.4); PLATELET 180 x1000/uL (130-400); RED BLOOD CELL COUNT 3.41 mill/uL (4.2-5.4); RED CELL DISTRIBUTION WIDTH 19.5 % (11.6-14.6)
[2020-02-25] MEDS ORDERED: POTASSIUM CHLORIDE 20MEQ/PACKET NG NR (09:00)
[2020-02-25] MEDS: PANTOPRAZOLE SODIUM 40 MG/VIAL IV SCH (09:05)
[2020-02-25] MEDS: DOCUSATE SODIUM 250MG CAPSULE PO SCH (09:05)
[2020-02-25] MEDS: MINOXIDIL 2.5MG TABLET PO SCH ×2 (09:05→21:40)
[2020-02-25] MEDS: AMLODIPINE 5MG TABLET PO SCH ×2 (09:05→21:40)
[2020-02-25] MEDS: LEVETIRACETAM 500MG PREMIX 100 ML IV SCH ×2 (09:06→21:41)
[2020-02-25] MEDS: METOPROLOL TARTRATE 50MG TABLET PO SCH ×2 (09:08→21:39)
[2020-02-25] MEDS: DEXTROSE 5% WATER 1,000 ML IV SCH (09:10)
[2020-02-25] MEDS: ATORVASTATIN CALCIUM 40MG TABLET PO SCH (21:39)
[2020-02-25 23:08] LABS: PLATELET ESTIMATE NORMAL
[2020-02-26] VITALS (14 sets, daily range): BP systolic 111–147; BP diastolic 58–106
[2020-02-26] MEDS: IPRATROPIUM/ALBUTEROL 0.5-3(2.5)MG/3ML NEB HHN SCH ×3 (00:01→20:41)
[2020-02-26] MEDS: PIPERACILLIN SODIUM/TAZOBACTAM 4.5 G in DEXT 5% WATER 100 ML IV SCH ×4 (02:14→21:27)
[2020-02-26] MEDS: HYDRALAZINE HCL 100MG TABLET PO SCH ×3 (06:10→21:26)
[2020-02-26] MEDS: CLONIDINE 0.3MG TABLET PO SCH ×3 (07:03→21:19)
[2020-02-26 07:48] LABS: HEMATOCRIT. 29.8 % (36.0-48.0); HEMOGLOBIN. 9.5 g/dL (12.0-16.0); MEAN CORPUSCULAR HEMOGLOBIN 25.9 pg (28.0-32.0); MEAN CORPUSCULAR VOLUME 80.7 fL (81.0-99.0); MEAN PLATELET VOLUME 9.9 fl (7.4-10.4); PLATELET 204 x1000/uL (130-400); RED BLOOD CELL COUNT 3.69 mill/uL (4.2-5.4); RED CELL DISTRIBUTION WIDTH 19.4 % (11.6-14.6)
[2020-02-26] MEDS: IPRATROPIUM/ALBUTEROL 0.5-3(2.5)MG/3ML NEB HHN PRN (08:19)
[2020-02-26] MEDS: ACETYLCYSTEINE 100MG/ML 10% VIAL 4ML INH SCH ×2 (08:19→20:41)
[2020-02-26] MEDS: AMLODIPINE 5MG TABLET PO SCH ×2 (08:53→21:18)
[2020-02-26] MEDS: MINOXIDIL 2.5MG TABLET PO SCH ×2 (08:53→21:19)
[2020-02-26] MEDS: DOCUSATE SODIUM 250MG CAPSULE PO SCH (08:53)
[2020-02-26] MEDS: LEVETIRACETAM 500MG PREMIX 100 ML IV SCH ×2 (08:54→21:27)
[2020-02-26] MEDS: PANTOPRAZOLE SODIUM 40 MG/VIAL IV SCH (08:54)
[2020-02-26] MEDS: DEXTROSE 5% WATER 1,000 ML IV SCH (08:54)
[2020-02-26] MEDS: METOPROLOL TARTRATE 50MG TABLET PO SCH ×2 (08:56→21:44)
[2020-02-26 11:53] LABS: PLATELET ESTIMATE NORMAL
[2020-02-26] MEDS ORDERED: POTASSIUM CHLORIDE 20MEQ/PACKET PO SCH (12:00)
[2020-02-26] MEDS: CLONIDINE 0.1MG TABLET PO PRN (14:22)
[2020-02-26] MEDS: ATORVASTATIN CALCIUM 40MG TABLET PO SCH (21:18)
[2020-02-27] VITALS (12 sets, daily range): BP systolic 111–162; BP diastolic 59–89
[2020-02-27] MEDS: IPRATROPIUM/ALBUTEROL 0.5-3(2.5)MG/3ML NEB HHN SCH ×4 (01:50→20:06)
[2020-02-27] MEDS: PIPERACILLIN SODIUM/TAZOBACTAM 4.5 G in DEXT 5% WATER 100 ML IV SCH ×4 (02:35→20:29)
[2020-02-27] MEDS: CLONIDINE 0.3MG TABLET PO SCH ×3 (04:54→22:15)
[2020-02-27] MEDS: DEXTROSE 5% WATER 1,000 ML IV SCH (04:55)
[2020-02-27] MEDS: HYDRALAZINE HCL 100MG TABLET PO SCH ×3 (04:55→22:15)
[2020-02-27 06:28] LABS: HEMATOCRIT. 28.2 % (36.0-48.0); HEMOGLOBIN. 9.2 g/dL (12.0-16.0); MEAN CORPUSCULAR HEMOGLOBIN 26.5 pg (28.0-32.0); MEAN CORPUSCULAR VOLUME 81.2 fL (81.0-99.0); PLATELET 220 x1000/uL (130-400); RED BLOOD CELL COUNT 3.47 mill/uL (4.2-5.4); RED CELL DISTRIBUTION WIDTH 19.5 % (11.6-14.6)
[2020-02-27] MEDS: ACETYLCYSTEINE 100MG/ML 10% VIAL 4ML INH SCH ×2 (07:40→20:07)
[2020-02-27] MEDS: DOCUSATE SODIUM 250MG CAPSULE PO SCH (08:57)
[2020-02-27] MEDS: PANTOPRAZOLE SODIUM 40 MG/VIAL IV SCH (08:57)
[2020-02-27] MEDS: MINOXIDIL 2.5MG TABLET PO SCH ×2 (08:59→21:00)
[2020-02-27] MEDS: METOPROLOL TARTRATE 50MG TABLET PO SCH ×2 (09:00→21:00)
[2020-02-27] MEDS: AMLODIPINE 5MG TABLET PO SCH ×2 (09:00→21:00)
[2020-02-27] MEDS: LEVETIRACETAM 500MG PREMIX 100 ML IV SCH ×2 (09:13→21:00)
[2020-02-27 11:36] LABS: PLATELET ESTIMATE NORMAL
[2020-02-27] MEDS: ATORVASTATIN CALCIUM 40MG TABLET PO SCH (21:00)
[2020-02-28] VITALS (12 sets, daily range): BP systolic 112–146; BP diastolic 54–77
[2020-02-28] MEDS: IPRATROPIUM/ALBUTEROL 0.5-3(2.5)MG/3ML NEB HHN SCH ×4 (02:02→20:00)
[2020-02-28] MEDS: CLONIDINE 0.3MG TABLET PO SCH ×3 (06:06→23:06)
[2020-02-28] MEDS: HYDRALAZINE HCL 100MG TABLET PO SCH ×3 (06:06→23:06)
[2020-02-28] MEDS: DEXTROSE 5% WATER 1,000 ML IV SCH ×2 (06:32→16:09)
[2020-02-28 07:49] LABS: HEMATOCRIT. 26.3 % (36.0-48.0); HEMOGLOBIN. 8.6 g/dL (12.0-16.0); MEAN CORPUSCULAR HEMOGLOBIN 26.3 pg (28.0-32.0); MEAN CORPUSCULAR VOLUME 80.5 fL (81.0-99.0); MEAN PLATELET VOLUME 10.2 fl (7.4-10.4); PLATELET 230 x1000/uL (130-400); RED BLOOD CELL COUNT 3.27 mill/uL (4.2-5.4); RED CELL DISTRIBUTION WIDTH 19.3 % (11.6-14.6)
[2020-02-28] MEDS: LEVETIRACETAM 500MG PREMIX 100 ML IV SCH ×2 (09:16→21:06)
[2020-02-28] MEDS: PANTOPRAZOLE SODIUM 40 MG/VIAL IV SCH (09:16)
[2020-02-28] MEDS: AMLODIPINE 5MG TABLET PO SCH ×2 (09:17→21:26)
[2020-02-28] MEDS: DOCUSATE SODIUM SUGAR FREE 100MG/10ML UDC PO SCH (09:17)
[2020-02-28] MEDS: METOPROLOL TARTRATE 50MG TABLET PO SCH ×2 (09:17→21:26)
[2020-02-28] MEDS: MINOXIDIL 2.5MG TABLET PO SCH ×2 (12:00→21:26)
[2020-02-28] MEDS: ACETAMINOPHEN 650MG/20.3ML UDC GT PRN (16:09)
[2020-02-28 16:35] LABS: PLATELET ESTIMATE NORMAL
[2020-02-28 16:39] LABS: CLARITY URINE CLOUDY (CLEAR); COLOR URINE YELLOW (YELLOW); KETONES URINE NEGATIVE (NEGATIVE); LEUKOCYTE ESTERASE URINE 3+ (NEGATIVE); NITRITE URINE NEGATIVE (NEGATIVE); OCCULT BLOOD URINE NEGATIVE (NEGATIVE); PH URINE 6.5 (4.5-8.0); PROTEIN URINE 1+ (NEGATIVE); SPECIFIC GRAVITY URINE 1.015 (1.005-1.030)
[2020-02-28] MEDS ORDERED: DOXYCYCLINE 100 MG in DEXT 5% WATER 100 ML IV SCH (17:30)
[2020-02-28] MEDS: CEFEPIME 2,000 MG in DEXT 5% WATER 100 ML IV SCH (21:05)
[2020-02-28] MEDS: DOXYCYCLINE HYCLATE 100MG CAPSULE PO SCH (21:25)
[2020-02-28] MEDS: ATORVASTATIN CALCIUM 40MG TABLET PO SCH (21:25)
[2020-02-29] VITALS (12 sets, daily range): BP systolic 113–139; BP diastolic 57–70
[2020-02-29] MEDS: IPRATROPIUM/ALBUTEROL 0.5-3(2.5)MG/3ML NEB HHN SCH ×4 (01:41→20:17)
[2020-02-29] MEDS: CLONIDINE 0.3MG TABLET PO SCH ×3 (06:00→21:40)
[2020-02-29] MEDS: HYDRALAZINE HCL 100MG TABLET PO SCH ×3 (06:00→21:40)
[2020-02-29 06:24] LABS: BASOPHILS % 0.5 % (0.0-2.0); EOSINOPHILS % 1.3 % (0.0-5.0); HEMATOCRIT. 26.2 % (36.0-48.0); HEMOGLOBIN. 8.5 g/dL (12.0-16.0); LYMPHOCYTES % 9.4 % (20.0-50.0); MEAN CORPUSCULAR HEMOGLOBIN 26.3 pg (28.0-32.0); MEAN CORPUSCULAR VOLUME 80.6 fL (81.0-99.0); MEAN PLATELET VOLUME 10.4 fl (7.4-10.4); MONOCYTES % 9.1 % (2.0-8.0); NEUTROPHILS % 79.7 % (40.0-76.0); PLATELET 233 x1000/uL (130-400); RED BLOOD CELL COUNT 3.25 mill/uL (4.2-5.4); RED CELL DISTRIBUTION WIDTH 20.1 % (11.6-14.6)
[2020-02-29] MEDS: PANTOPRAZOLE SODIUM 40 MG/VIAL IV SCH (08:43)
[2020-02-29] MEDS: DOCUSATE SODIUM SUGAR FREE 100MG/10ML UDC PO SCH (08:43)
[2020-02-29] MEDS: MINOXIDIL 2.5MG TABLET PO SCH ×2 (08:43→20:45)
[2020-02-29] MEDS: AMLODIPINE 5MG TABLET PO SCH ×2 (08:44→20:44)
[2020-02-29] MEDS: DOXYCYCLINE HYCLATE 100MG CAPSULE PO SCH ×2 (08:44→20:48)
[2020-02-29] MEDS: METOPROLOL TARTRATE 50MG TABLET PO SCH ×2 (08:44→20:48)
[2020-02-29] MEDS: LEVETIRACETAM 500MG PREMIX 100 ML IV SCH ×2 (08:45→21:38)
[2020-02-29] MEDS: DEXTROSE 5% WATER 1,000 ML IV SCH (12:00)
[2020-02-29] MEDS: CEFEPIME 2,000 MG in DEXT 5% WATER 100 ML IV SCH (20:44)
[2020-02-29] MEDS: ATORVASTATIN CALCIUM 40MG TABLET PO SCH (20:48)
[2020-03-01] VITALS (12 sets, daily range): BP systolic 116–152; BP diastolic 52–97
[2020-03-01] MEDS: IPRATROPIUM/ALBUTEROL 0.5-3(2.5)MG/3ML NEB HHN SCH ×4 (02:24→21:01)
[2020-03-01] MEDS: CLONIDINE 0.3MG TABLET PO SCH ×2 (05:44→14:00)
[2020-03-01] MEDS: HYDRALAZINE HCL 100MG TABLET PO SCH ×2 (05:44→14:00)
[2020-03-01 06:29] LABS: BG BASE EXCESS -1.5 mmol/L (-2.0-2.0); BG CARBOXYHEMOGLOBIN 0.3 % (0.5-1.5); BG DEOXYHEMOGLOBIN 2.9 % (0.0-5.0); BG FRACTION INSPIRED OXYGEN 100; BG HCO3 ACT 24.2 mmol/L (22.0-26.0); BG METHEMOGLOBIN 0.3 % (0.0-1.5); BG OXYGEN SATURATION 97.1 % (92.0-98.5); BG OXYHEMOGLOBIN 96.5 % (94.0-97.0); BG PCO2 44.8 mmHg (35.0-45.0); BG SAMPLE SITE RIGHT RADIAL; BG TIDAL VOLUME(mL) 500 mL; BG TOTAL HEMOGLOBIN 9.7 g/dL (12.0-18.0); BG VENT MODE VENT - A/C; BG VENT RATE 12 set
[2020-03-01] MEDS: ACETAMINOPHEN 650MG/20.3ML UDC GT PRN (07:30)
[2020-03-01] MEDS: LORAZEPAM 2MG/ML CPJ IV PRN ×2 (07:30→14:28)
[2020-03-01] MEDS: DEXTROSE 5% WATER 1,000 ML IV SCH (07:41)
[2020-03-01] MEDS: LEVETIRACETAM 500MG PREMIX 100 ML IV SCH ×2 (08:16→20:27)
[2020-03-01] MEDS: PANTOPRAZOLE SODIUM 40 MG/VIAL IV SCH (08:16)
[2020-03-01] MEDS: MINOXIDIL 2.5MG TABLET PO SCH ×2 (08:29→22:23)
[2020-03-01] MEDS: DOCUSATE SODIUM SUGAR FREE 100MG/10ML UDC PO SCH (08:29)
[2020-03-01] MEDS: AMLODIPINE 5MG TABLET PO SCH ×2 (08:30→22:24)
[2020-03-01] MEDS: METOPROLOL TARTRATE 50MG TABLET PO SCH ×2 (08:30→22:26)
[2020-03-01] MEDS: DOXYCYCLINE HYCLATE 100MG CAPSULE PO SCH ×2 (08:31→22:23)
[2020-03-01] MEDS ORDERED: LORAZEPAM 2MG/ML CPJ IV NR (08:45)
[2020-03-01] MEDS: FUROSEMIDE 40MG/4ML VIAL IVP SCH ×2 (11:03→17:10)
[2020-03-01] MEDS: FLUCONAZOLE 200 MG/100ML BAG 100 ML IV SCH (12:39)
[2020-03-01] MEDS: CEFEPIME 2,000 MG in DEXT 5% WATER 100 ML IV SCH (20:27)
[2020-03-01] MEDS: ATORVASTATIN CALCIUM 40MG TABLET PO SCH (22:23)
[2020-03-02] VITALS (13 sets, daily range): BP systolic 93–141; BP diastolic 48–75
[2020-03-02] MEDS: CLONIDINE 0.3MG TABLET PO SCH ×4 (00:07→23:57)
[2020-03-02] MEDS: HYDRALAZINE HCL 100MG TABLET PO SCH ×4 (00:07→23:56)
[2020-03-02] MEDS: IPRATROPIUM/ALBUTEROL 0.5-3(2.5)MG/3ML NEB HHN SCH ×4 (00:54→20:24)
[2020-03-02] MEDS: FUROSEMIDE 40MG/4ML VIAL IVP SCH ×2 (06:07→16:25)
[2020-03-02 06:18] LABS: HEMATOCRIT. 27.2 % (36.0-48.0); HEMOGLOBIN. 8.9 g/dL (12.0-16.0); MEAN CORPUSCULAR HEMOGLOBIN 26.3 pg (28.0-32.0); MEAN CORPUSCULAR VOLUME 80.3 fL (81.0-99.0); MEAN PLATELET VOLUME 10.5 fl (7.4-10.4); PLATELET 236 x1000/uL (130-400); RED BLOOD CELL COUNT 3.39 mill/uL (4.2-5.4); RED CELL DISTRIBUTION WIDTH 19.4 % (11.6-14.6)
[2020-03-02] MEDS: AMLODIPINE 5MG TABLET PO SCH ×2 (09:00→21:38)
[2020-03-02] MEDS ORDERED: FUROSEMIDE 40MG/4ML VIAL IVP SCH (09:00)
[2020-03-02] MEDS: MINOXIDIL 2.5MG TABLET PO SCH ×2 (09:00→21:57)
[2020-03-02] MEDS: LEVETIRACETAM 500MG PREMIX 100 ML IV SCH ×2 (09:22→21:55)
[2020-03-02] MEDS: PANTOPRAZOLE SODIUM 40 MG/VIAL IV SCH (09:23)
[2020-03-02] MEDS: DOCUSATE SODIUM SUGAR FREE 100MG/10ML UDC PO SCH (09:23)
[2020-03-02] MEDS: DOXYCYCLINE HYCLATE 100MG CAPSULE PO SCH ×2 (09:24→21:37)
[2020-03-02] MEDS: METOPROLOL TARTRATE 50MG TABLET PO SCH ×2 (09:24→23:56)
[2020-03-02 11:13] LABS: BG BASE EXCESS 0.6 mmol/L (-2.0-2.0); BG CARBOXYHEMOGLOBIN 0.3 % (0.5-1.5); BG FRACTION INSPIRED OXYGEN 100; BG HCO3 ACT 23.9 mmol/L (22.0-26.0); BG METHEMOGLOBIN 0.1 % (0.0-1.5); BG OXYHEMOGLOBIN 98.6 % (94.0-97.0); BG PCO2 33.5 mmHg (35.0-45.0); BG PH 7.472 (7.350-7.450); BG PO2 200.7 mmHg (75.0-100.0); BG SAMPLE SITE RIGHT RADIAL; BG TIDAL VOLUME(mL) 500 mL; BG TOTAL HEMOGLOBIN 10.1 g/dL (12.0-18.0); BG VENT MODE VENT - A/C; BG VENT RATE 12 set
[2020-03-02] MEDS: FLUCONAZOLE 200 MG/100ML BAG 100 ML IV SCH (13:41)
[2020-03-02 14:22] LABS: PLATELET ESTIMATE NORMAL
[2020-03-02] MEDS: ACETAMINOPHEN 650MG/20.3ML UDC GT PRN (16:26)
[2020-03-02] MEDS: ATORVASTATIN CALCIUM 40MG TABLET PO SCH (21:37)
[2020-03-02] MEDS: CEFEPIME 2,000 MG in DEXT 5% WATER 100 ML IV SCH (21:55)
[2020-03-03] VITALS (10 sets, daily range): BP systolic 111–159; BP diastolic 50–75
[2020-03-03] MEDS: IPRATROPIUM/ALBUTEROL 0.5-3(2.5)MG/3ML NEB HHN SCH ×4 (02:07→20:27)
[2020-03-03] MEDS: FUROSEMIDE 40MG/4ML VIAL IVP SCH ×2 (06:03→17:26)
[2020-03-03] MEDS: HYDRALAZINE HCL 100MG TABLET PO SCH ×3 (06:08→21:18)
[2020-03-03] MEDS: CLONIDINE 0.3MG TABLET PO SCH ×3 (06:18→21:19)
[2020-03-03 06:35] LABS: BASOPHILS % 0.7 % (0.0-2.0); EOSINOPHILS % 1.4 % (0.0-5.0); HEMATOCRIT. 28.6 % (36.0-48.0); HEMOGLOBIN. 9.4 g/dL (12.0-16.0); LYMPHOCYTES % 8.3 % (20.0-50.0); MEAN CORPUSCULAR HEMOGLOBIN 26.6 pg (28.0-32.0); MEAN CORPUSCULAR VOLUME 80.6 fL (81.0-99.0); MEAN PLATELET VOLUME 10.3 fl (7.4-10.4); MONOCYTES % 7.5 % (2.0-8.0); NEUTROPHILS % 82.1 % (40.0-76.0); PLATELET 235 x1000/uL (130-400); RED BLOOD CELL COUNT 3.54 mill/uL (4.2-5.4); RED CELL DISTRIBUTION WIDTH 19.6 % (11.6-14.6)
[2020-03-03] MEDS: DOCUSATE SODIUM SUGAR FREE 100MG/10ML UDC PO SCH (08:34)
[2020-03-03] MEDS: METOPROLOL TARTRATE 50MG TABLET PO SCH ×2 (08:35→21:19)
[2020-03-03] MEDS: AMLODIPINE 5MG TABLET PO SCH ×2 (08:35→21:00)
[2020-03-03] MEDS: PANTOPRAZOLE SODIUM 40 MG/VIAL IV SCH (08:35)
[2020-03-03] MEDS: DOXYCYCLINE HYCLATE 100MG CAPSULE PO SCH ×2 (08:36→21:18)
[2020-03-03] MEDS: LEVETIRACETAM 500MG PREMIX 100 ML IV SCH ×2 (08:36→21:20)
[2020-03-03] MEDS: MINOXIDIL 2.5MG TABLET PO SCH ×2 (08:36→21:18)
[2020-03-03] MEDS ORDERED: POTASSIUM CHLORIDE 20MEQ/PACKET PO SCH (11:00)
[2020-03-03] MEDS: FLUCONAZOLE 200 MG/100ML BAG 100 ML IV SCH (12:10)
[2020-03-03] MEDS: ATORVASTATIN CALCIUM 40MG TABLET PO SCH (21:17)
[2020-03-03] MEDS: CEFEPIME 2,000 MG in DEXT 5% WATER 100 ML IV SCH (21:20)
[2020-03-04] VITALS (10 sets, daily range): BP systolic 95–150; BP diastolic 57–77
[2020-03-04] MEDS: ACETAMINOPHEN 650MG/20.3ML UDC GT PRN (00:20)
[2020-03-04] MEDS: IPRATROPIUM/ALBUTEROL 0.5-3(2.5)MG/3ML NEB HHN SCH ×4 (02:20→20:30)
[2020-03-04] MEDS: HYDRALAZINE HCL 100MG TABLET PO SCH ×3 (02:52→23:30)
[2020-03-04] MEDS: FUROSEMIDE 40MG/4ML VIAL IVP SCH ×2 (02:52→05:24)
[2020-03-04] MEDS: CLONIDINE 0.3MG TABLET PO SCH ×3 (02:52→23:30)
[2020-03-04] MEDS: AMLODIPINE 5MG TABLET PO SCH ×2 (09:01→20:28)
[2020-03-04] MEDS: METOPROLOL TARTRATE 50MG TABLET PO SCH ×2 (09:02→23:30)
[2020-03-04] MEDS: DOXYCYCLINE HYCLATE 100MG CAPSULE PO SCH ×2 (09:02→20:28)
[2020-03-04] MEDS: MINOXIDIL 2.5MG TABLET PO SCH ×2 (09:02→20:27)
[2020-03-04] MEDS: PANTOPRAZOLE SODIUM 40 MG/VIAL IV SCH (09:03)
[2020-03-04] MEDS: DOCUSATE SODIUM SUGAR FREE 100MG/10ML UDC PO SCH (09:03)
[2020-03-04] MEDS: LEVETIRACETAM 500MG PREMIX 100 ML IV SCH ×2 (09:03→20:26)
[2020-03-04 09:46] LABS: BG BASE EXCESS 0.6 mmol/L (-2.0-2.0); BG CARBOXYHEMOGLOBIN 0.3 % (0.5-1.5); BG DEOXYHEMOGLOBIN 3.5 % (0.0-5.0); BG FRACTION INSPIRED OXYGEN 55; BG HCO3 ACT 23.3 mmol/L (22.0-26.0); BG METHEMOGLOBIN 0.1 % (0.0-1.5); BG OXYGEN SATURATION 96.5 % (92.0-98.5); BG OXYHEMOGLOBIN 96.1 % (94.0-97.0); BG PCO2 30.3 mmHg (35.0-45.0); BG PH 7.503 (7.350-7.450); BG PO2 90.3 mmHg (75.0-100.0); BG SAMPLE SITE RIGHT RADIAL; BG TIDAL VOLUME(mL) 500 mL; BG TOTAL HEMOGLOBIN 9.8 g/dL (12.0-18.0); BG VENT MODE VENT - A/C; BG VENT RATE 12 set
[2020-03-04] MEDS: FLUCONAZOLE 200 MG/100ML BAG 100 ML IV SCH (13:40)
[2020-03-04] MEDS: CEFEPIME 2,000 MG in DEXT 5% WATER 100 ML IV SCH (20:26)
[2020-03-04] MEDS: ATORVASTATIN CALCIUM 40MG TABLET PO SCH (20:27)
[2020-03-05] VITALS (12 sets, daily range): BP systolic 93–135; BP diastolic 55–78
[2020-03-05] MEDS ORDERED: POTASSIUM CHLORIDE 20MEQ/PACKET PO NR (00:30)
[2020-03-05] MEDS: IPRATROPIUM/ALBUTEROL 0.5-3(2.5)MG/3ML NEB HHN SCH ×4 (02:18→20:10)
[2020-03-05] MEDS: CLONIDINE 0.3MG TABLET PO SCH ×3 (06:00→22:59)
[2020-03-05] MEDS: HYDRALAZINE HCL 100MG TABLET PO SCH ×3 (06:00→22:59)
[2020-03-05] MEDS: FUROSEMIDE 40MG/4ML VIAL IVP SCH ×2 (06:38→17:40)
[2020-03-05 06:50] LABS: BASOPHILS % 0.7 % (0.0-2.0); EOSINOPHILS % 1.5 % (0.0-5.0); HEMATOCRIT. 27.1 % (36.0-48.0); HEMOGLOBIN. 8.9 g/dL (12.0-16.0); LYMPHOCYTES % 9.3 % (20.0-50.0); MEAN CORPUSCULAR HEMOGLOBIN 26.5 pg (28.0-32.0); MEAN CORPUSCULAR VOLUME 80.9 fL (81.0-99.0); MEAN PLATELET VOLUME 10.2 fl (7.4-10.4); MONOCYTES % 8.1 % (2.0-8.0); NEUTROPHILS % 80.4 % (40.0-76.0); PLATELET 212 x1000/uL (130-400); RED BLOOD CELL COUNT 3.35 mill/uL (4.2-5.4); RED CELL DISTRIBUTION WIDTH 19.7 % (11.6-14.6)
[2020-03-05] MEDS: DOXYCYCLINE HYCLATE 100MG CAPSULE PO SCH ×2 (10:00→20:53)
[2020-03-05] MEDS: DOCUSATE SODIUM SUGAR FREE 100MG/10ML UDC PO SCH (10:00)
[2020-03-05] MEDS: PANTOPRAZOLE SODIUM 40 MG/VIAL IV SCH (10:00)
[2020-03-05] MEDS: AMLODIPINE 5MG TABLET PO SCH ×2 (10:00→20:53)
[2020-03-05] MEDS: METOPROLOL TARTRATE 50MG TABLET PO SCH ×2 (10:00→20:53)
[2020-03-05] MEDS: LEVETIRACETAM 500MG PREMIX 100 ML IV SCH ×2 (10:01→20:50)
[2020-03-05] MEDS: MINOXIDIL 2.5MG TABLET PO SCH ×2 (10:01→20:53)
[2020-03-05] MEDS: FLUCONAZOLE 100MG TABLET PO SCH (10:02)
[2020-03-05] MEDS: POTASSIUM CHLORIDE 20MEQ TABLET SR PO SCH (13:22)
[2020-03-05] MEDS: LORAZEPAM 2MG/ML CPJ IV PRN (17:40)
[2020-03-05] MEDS: ATORVASTATIN CALCIUM 40MG TABLET PO SCH (20:53)
[2020-03-06] VITALS (12 sets, daily range): BP systolic 93–149; BP diastolic 45–100
[2020-03-06] MEDS: IPRATROPIUM/ALBUTEROL 0.5-3(2.5)MG/3ML NEB HHN SCH ×4 (02:11→20:20)
[2020-03-06] MEDS: HYDRALAZINE HCL 100MG TABLET PO SCH ×3 (05:58→22:57)
[2020-03-06] MEDS: CLONIDINE 0.3MG TABLET PO SCH ×3 (06:02→22:58)
[2020-03-06] MEDS: FUROSEMIDE 40MG/4ML VIAL IVP SCH (06:37)
[2020-03-06 07:31] LABS: BASOPHILS % 0.4 % (0.0-2.0); EOSINOPHILS % 1.9 % (0.0-5.0); HEMATOCRIT. 29.1 % (36.0-48.0); HEMOGLOBIN. 9.5 g/dL (12.0-16.0); MEAN CORPUSCULAR HEMOGLOBIN 26.8 pg (28.0-32.0); MEAN CORPUSCULAR VOLUME 81.5 fL (81.0-99.0); MEAN PLATELET VOLUME 10.7 fl (7.4-10.4); MONOCYTES % 7.7 % (2.0-8.0); PLATELET 239 x1000/uL (130-400); RED BLOOD CELL COUNT 3.57 mill/uL (4.2-5.4); RED CELL DISTRIBUTION WIDTH 20.2 % (11.6-14.6)
[2020-03-06] MEDS: LEVETIRACETAM 500MG PREMIX 100 ML IV SCH ×2 (08:09→22:56)
[2020-03-06] MEDS: AMLODIPINE 5MG TABLET PO SCH ×2 (08:09→22:58)
[2020-03-06] MEDS: DOXYCYCLINE HYCLATE 100MG CAPSULE PO SCH ×2 (08:10→21:00)
[2020-03-06] MEDS: POTASSIUM CHLORIDE 20MEQ TABLET SR PO SCH (08:10)
[2020-03-06] MEDS: DOCUSATE SODIUM SUGAR FREE 100MG/10ML UDC PO SCH (08:10)
[2020-03-06] MEDS: FLUCONAZOLE 100MG TABLET PO SCH (08:10)
[2020-03-06] MEDS: PANTOPRAZOLE SODIUM 40 MG/VIAL IV SCH (08:10)
[2020-03-06] MEDS: MINOXIDIL 2.5MG TABLET PO SCH ×2 (08:10→22:56)
[2020-03-06] MEDS: METOPROLOL TARTRATE 50MG TABLET PO SCH ×2 (08:10→22:57)
[2020-03-06] MEDS ORDERED: LIDOCAINE HCL 1% 20ML VIAL (Pyxis) INJ ONE (15:00)
[2020-03-06] MEDS ORDERED: BUPIVACAINE HCL/PF 0.5% (5MG/ML) 10ML ONE (15:00)
[2020-03-06] MEDS ORDERED: BACITRACIN 50,000 UNITS/VIAL ONE (15:01)
[2020-03-06 17:56] LABS: CLARITY URINE CLEAR (CLEAR); COLOR URINE YELLOW (YELLOW); KETONES URINE NEGATIVE (NEGATIVE); LEUKOCYTE ESTERASE URINE 1+ (NEGATIVE); NITRITE URINE NEGATIVE (NEGATIVE); OCCULT BLOOD URINE 2+ (NEGATIVE); PH URINE 5.5 (4.5-8.0); PROTEIN URINE 2+ (NEGATIVE); SPECIFIC GRAVITY URINE 1.014 (1.005-1.030)
[2020-03-06] MEDS: FUROSEMIDE 40MG TABLET PO SCH (18:05)
[2020-03-06] MEDS ORDERED: ROCURONIUM BROMIDE 10MG/ML VIAL 5ML IV ONE ×2 (18:43→19:11)
[2020-03-06] MEDS ORDERED: FENTANYL CITRATE/PF 50MCG/ML 2ML VIAL ONE (19:00)
[2020-03-06] MEDS ORDERED: SODIUM CHLORIDE 0.9% 10ML VIAL ONE (19:29)
[2020-03-06] MEDS ORDERED: VECURONIUM BROMIDE 10 MG/VIAL IV ONE ×3 (19:29→20:30)
[2020-03-06] MEDS: ATORVASTATIN CALCIUM 40MG TABLET PO SCH (22:57)
[2020-03-07] VITALS (12 sets, daily range): BP systolic 91–147; BP diastolic 52–69
[2020-03-07] MEDS: IPRATROPIUM/ALBUTEROL 0.5-3(2.5)MG/3ML NEB HHN SCH ×2 (02:55→08:10)
[2020-03-07] MEDS: HYDRALAZINE HCL 100MG TABLET PO SCH (05:44)
[2020-03-07] MEDS: CLONIDINE 0.3MG TABLET PO SCH (05:44)
[2020-03-07] MEDS: FUROSEMIDE 40MG TABLET PO SCH (05:45)
[2020-03-07] MEDS: PANTOPRAZOLE SODIUM 40 MG/VIAL IV SCH (08:54)
[2020-03-07] MEDS: METOPROLOL TARTRATE 50MG TABLET PO SCH (08:56)
[2020-03-07] MEDS: POTASSIUM CHLORIDE 20MEQ TABLET SR PO SCH (08:56)
[2020-03-07] MEDS: MINOXIDIL 2.5MG TABLET PO SCH (08:56)
[2020-03-07] MEDS: AMLODIPINE 5MG TABLET PO SCH (08:56)
[2020-03-07] MEDS: LEVETIRACETAM 500MG PREMIX 100 ML IV SCH ×2 (08:57→22:08)
[2020-03-07] MEDS: DOCUSATE SODIUM SUGAR FREE 100MG/10ML UDC PO SCH (08:57)
[2020-03-07 11:40] LABS: BG BASE EXCESS 0.1 mmol/L (-2.0-2.0); BG CARBOXYHEMOGLOBIN 0.3 % (0.5-1.5); BG DEOXYHEMOGLOBIN 5.6 % (0.0-5.0); BG FRACTION INSPIRED OXYGEN 70; BG HCO3 ACT 22.2 mmol/L (22.0-26.0); BG METHEMOGLOBIN 0.2 % (0.0-1.5); BG OXYGEN SATURATION 94.4 % (92.0-98.5); BG OXYHEMOGLOBIN 93.9 % (94.0-97.0); BG PCO2 27.3 mmHg (35.0-45.0); BG PH 7.528 (7.350-7.450); BG SAMPLE SITE RIGHT RADIAL; BG TIDAL VOLUME(mL) 500 mL; BG TOTAL HEMOGLOBIN 9.2 g/dL (12.0-18.0); BG VENT MODE VENT - A/C; BG VENT RATE 12 set
[2020-03-07] MEDS ORDERED: FUROSEMIDE 40MG/4ML VIAL IVP NR (14:00)
[2020-03-07] MEDS: MORPHINE SULFATE 2 MG/ML CPJ (NOT FOR IM USE) IV PRN (16:11)
[2020-03-07] MEDS: ACETAMINOPHEN 650MG/20.3ML UDC PO PRN (16:44)
[2020-03-07] MEDS: LORAZEPAM 2MG/ML CPJ IV PRN (16:44)
[2020-03-07] MEDS: ATORVASTATIN CALCIUM 40MG TABLET PO SCH (22:03)
[2020-03-08] VITALS (12 sets, daily range): BP systolic 120–152; BP diastolic 63–74
[2020-03-08 05:53] LABS: HEMATOCRIT. 27.2 % (36.0-48.0); HEMOGLOBIN. 9.2 g/dL (12.0-16.0); LYMPHOCYTES % 11.2 % (20.0-50.0); MEAN CORPUSCULAR HEMOGLOBIN 27.6 pg (28.0-32.0); MEAN CORPUSCULAR VOLUME 81.8 fL (81.0-99.0); MEAN PLATELET VOLUME 10.7 fl (7.4-10.4); MONOCYTES % 8.2 % (2.0-8.0); NEUTROPHILS % 78.6 % (40.0-76.0); PLATELET 214 x1000/uL (130-400); RED BLOOD CELL COUNT 3.32 mill/uL (4.2-5.4); RED CELL DISTRIBUTION WIDTH 20.3 % (11.6-14.6)
[2020-03-08] MEDS: POTASSIUM CHLORIDE 20MEQ TABLET SR PO SCH (09:18)
[2020-03-08] MEDS: DOCUSATE SODIUM SUGAR FREE 100MG/10ML UDC PO SCH (09:18)
[2020-03-08] MEDS: LEVETIRACETAM 500MG PREMIX 100 ML IV SCH ×2 (09:18→20:46)
[2020-03-08] MEDS: PANTOPRAZOLE SODIUM 40 MG/VIAL IV SCH (09:18)
[2020-03-08 10:26] LABS: BG BASE EXCESS 0.8 mmol/L (-2.0-2.0); BG CARBOXYHEMOGLOBIN 0.3 % (0.5-1.5); BG DEOXYHEMOGLOBIN 2.2 % (0.0-5.0); BG FRACTION INSPIRED OXYGEN 70; BG HCO3 ACT 23.4 mmol/L (22.0-26.0); BG METHEMOGLOBIN 0.1 % (0.0-1.5); BG OXYGEN SATURATION 97.8 % (92.0-98.5); BG OXYHEMOGLOBIN 97.4 % (94.0-97.0); BG PCO2 30.1 mmHg (35.0-45.0); BG PH 7.509 (7.350-7.450); BG PO2 116.3 mmHg (75.0-100.0); BG SAMPLE SITE RIGHT RADIAL; BG TIDAL VOLUME(mL) 500 mL; BG VENT MODE VENT - A/C; BG VENT RATE 12 set
[2020-03-08] MEDS ORDERED: FUROSEMIDE 40MG/4ML VIAL IVP SCH (12:00)
[2020-03-08] MEDS: MICAFUNGIN 100 MG in SODIUM CHLORIDE 0.9% 100 ML IV SCH (16:54)
[2020-03-08] MEDS: ACETAMINOPHEN 650MG/20.3ML UDC PO PRN (16:55)
[2020-03-08] MEDS: ATORVASTATIN CALCIUM 40MG TABLET PO SCH (20:46)
[2020-03-08] MEDS: IPRATROPIUM/ALBUTEROL 0.5-3(2.5)MG/3ML NEB HHN SCH (21:57)
[2020-03-09] VITALS (12 sets, daily range): BP systolic 114–172; BP diastolic 30–95
[2020-03-09] MEDS: IPRATROPIUM/ALBUTEROL 0.5-3(2.5)MG/3ML NEB HHN SCH ×4 (01:11→19:56)
[2020-03-09] MEDS: ACETAMINOPHEN 650MG/20.3ML UDC PO PRN (07:24)
[2020-03-09 07:31] LABS: BASOPHILS % 0.6 % (0.0-2.0); EOSINOPHILS % 0.5 % (0.0-5.0); HEMATOCRIT. 27.3 % (36.0-48.0); HEMOGLOBIN. 8.9 g/dL (12.0-16.0); LYMPHOCYTES % 12.5 % (20.0-50.0); MEAN CORPUSCULAR HEMOGLOBIN 26.8 pg (28.0-32.0); MEAN CORPUSCULAR VOLUME 82.4 fL (81.0-99.0); MEAN PLATELET VOLUME 10.5 fl (7.4-10.4); MONOCYTES % 8.9 % (2.0-8.0); NEUTROPHILS % 77.5 % (40.0-76.0); PLATELET 183 x1000/uL (130-400); RED BLOOD CELL COUNT 3.31 mill/uL (4.2-5.4); RED CELL DISTRIBUTION WIDTH 20.4 % (11.6-14.6)
[2020-03-09] MEDS: DEXTROSE 5% WATER 1,000 ML IV SCH (08:30)
[2020-03-09] MEDS ORDERED: LACTULOSE 20G/30ML UDC PO NR (08:30)
[2020-03-09] MEDS: POTASSIUM CHLORIDE 20MEQ TABLET SR PO SCH (08:50)
[2020-03-09] MEDS: FUROSEMIDE 40MG/4ML VIAL IVP SCH ×2 (08:50→17:27)
[2020-03-09] MEDS: PANTOPRAZOLE SODIUM 40 MG/VIAL IV SCH (08:50)
[2020-03-09] MEDS: DOCUSATE SODIUM SUGAR FREE 100MG/10ML UDC PO SCH (08:50)
[2020-03-09] MEDS: CLONIDINE 0.1MG TABLET PO PRN ×2 (08:51→17:40)
[2020-03-09] MEDS: LEVETIRACETAM 500MG PREMIX 100 ML IV SCH ×2 (08:57→20:08)
[2020-03-09] MEDS: MORPHINE SULFATE 2 MG/ML CPJ (NOT FOR IM USE) IV PRN ×2 (09:35→17:40)
[2020-03-09] MEDS: MICAFUNGIN 100 MG in SODIUM CHLORIDE 0.9% 100 ML IV SCH (14:49)
[2020-03-09] MEDS: ATORVASTATIN CALCIUM 40MG TABLET PO SCH (20:08)
[2020-03-10] VITALS (11 sets, daily range): BP systolic 138–172; BP diastolic 19–119
[2020-03-10] MEDS: IPRATROPIUM/ALBUTEROL 0.5-3(2.5)MG/3ML NEB HHN SCH ×4 (01:55→20:35)
[2020-03-10] MEDS: ACETAMINOPHEN 650MG/20.3ML UDC PO PRN ×2 (04:38→15:45)
[2020-03-10] MEDS: DEXTROSE 5% WATER 1,000 ML IV SCH ×2 (04:38→23:46)
[2020-03-10] MEDS: PANTOPRAZOLE SODIUM 40 MG/VIAL IV SCH (08:54)
[2020-03-10] MEDS: FUROSEMIDE 40MG/4ML VIAL IVP SCH ×2 (08:54→18:30)
[2020-03-10] MEDS: DOCUSATE SODIUM SUGAR FREE 100MG/10ML UDC PO SCH (08:55)
[2020-03-10] MEDS: POTASSIUM CHLORIDE 20MEQ TABLET SR PO SCH (08:55)
[2020-03-10] MEDS: LEVETIRACETAM 500MG PREMIX 100 ML IV SCH ×2 (08:58→21:23)
[2020-03-10 15:30] LABS: BASOPHILS % 0.5 % (0.0-2.0); EOSINOPHILS % 2.5 % (0.0-5.0); HEMATOCRIT. 27.8 % (36.0-48.0); HEMOGLOBIN. 8.8 g/dL (12.0-16.0); LYMPHOCYTES % 10.6 % (20.0-50.0); MEAN CORPUSCULAR HEMOGLOBIN 26.4 pg (28.0-32.0); MEAN CORPUSCULAR VOLUME 83.2 fL (81.0-99.0); MEAN PLATELET VOLUME 10.1 fl (7.4-10.4); NEUTROPHILS % 80.4 % (40.0-76.0); PLATELET 187 x1000/uL (130-400); RED BLOOD CELL COUNT 3.34 mill/uL (4.2-5.4); RED CELL DISTRIBUTION WIDTH 20.6 % (11.6-14.6)
[2020-03-10] MEDS: MICAFUNGIN 100 MG in SODIUM CHLORIDE 0.9% 100 ML IV SCH (15:45)
[2020-03-10] MEDS: LORAZEPAM 2MG/ML CPJ IV PRN (15:58)
[2020-03-10] MEDS: CLONIDINE 0.1MG TABLET PO PRN (15:58)
[2020-03-10] MEDS: CLONIDINE 0.1MG TABLET PO SCH (21:32)
[2020-03-10] MEDS: ATORVASTATIN CALCIUM 40MG TABLET PO SCH (21:32)
[2020-03-10] MEDS: AMLODIPINE 5MG TABLET PO SCH (21:33)
[2020-03-11] VITALS (11 sets, daily range): BP systolic 110–158; BP diastolic 38–93
[2020-03-11] MEDS: IPRATROPIUM/ALBUTEROL 0.5-3(2.5)MG/3ML NEB HHN SCH ×4 (02:09→20:08)
[2020-03-11] MEDS: CLONIDINE 0.1MG TABLET PO SCH ×3 (06:19→21:43)
[2020-03-11] MEDS: FUROSEMIDE 40MG/4ML VIAL IVP SCH ×2 (06:23→16:19)
[2020-03-11 07:00] LABS: BASOPHILS % 0.4 % (0.0-2.0); EOSINOPHILS % 2.9 % (0.0-5.0); HEMOGLOBIN. 8.8 g/dL (12.0-16.0); LYMPHOCYTES % 12.1 % (20.0-50.0); MEAN CORPUSCULAR HEMOGLOBIN 26.9 pg (28.0-32.0); MEAN CORPUSCULAR VOLUME 82.9 fL (81.0-99.0); MEAN PLATELET VOLUME 10.1 fl (7.4-10.4); MONOCYTES % 5.5 % (2.0-8.0); NEUTROPHILS % 79.1 % (40.0-76.0); PLATELET 179 x1000/uL (130-400); RED BLOOD CELL COUNT 3.26 mill/uL (4.2-5.4); RED CELL DISTRIBUTION WIDTH 20.2 % (11.6-14.6)
[2020-03-11] MEDS: PANTOPRAZOLE SODIUM 40 MG/VIAL IV SCH (08:58)
[2020-03-11] MEDS: POTASSIUM CHLORIDE 20MEQ TABLET SR PO SCH (08:58)
[2020-03-11] MEDS: AMLODIPINE 5MG TABLET PO SCH ×2 (08:58→21:37)
[2020-03-11] MEDS: DOCUSATE SODIUM SUGAR FREE 100MG/10ML UDC PO SCH (08:58)
[2020-03-11] MEDS: LEVETIRACETAM 500MG PREMIX 100 ML IV SCH ×2 (09:08→21:37)
[2020-03-11] MEDS: MICAFUNGIN 100 MG in SODIUM CHLORIDE 0.9% 100 ML IV SCH (14:14)
[2020-03-11] MEDS: ATORVASTATIN CALCIUM 40MG TABLET PO SCH (21:37)
[2020-03-12] VITALS (11 sets, daily range): BP systolic 135–182; BP diastolic 40–86
[2020-03-12] MEDS: IPRATROPIUM/ALBUTEROL 0.5-3(2.5)MG/3ML NEB HHN SCH ×4 (01:30→20:49)
[2020-03-12] MEDS: FUROSEMIDE 40MG/4ML VIAL IVP SCH ×2 (05:31→17:06)
[2020-03-12] MEDS: CLONIDINE 0.1MG TABLET PO SCH ×3 (05:31→22:00)
[2020-03-12 05:59] LABS: BASOPHILS % 0.7 % (0.0-2.0); EOSINOPHILS % 2.8 % (0.0-5.0); HEMATOCRIT. 26.3 % (36.0-48.0); HEMOGLOBIN. 8.6 g/dL (12.0-16.0); LYMPHOCYTES % 12.2 % (20.0-50.0); MEAN CORPUSCULAR HEMOGLOBIN 27.2 pg (28.0-32.0); MEAN CORPUSCULAR VOLUME 83.4 fL (81.0-99.0); MEAN PLATELET VOLUME 9.9 fl (7.4-10.4); MONOCYTES % 6.2 % (2.0-8.0); NEUTROPHILS % 78.1 % (40.0-76.0); PLATELET 156 x1000/uL (130-400); RED BLOOD CELL COUNT 3.15 mill/uL (4.2-5.4); RED CELL DISTRIBUTION WIDTH 20.1 % (11.6-14.6)
[2020-03-12 06:05] LABS: CHLORIDE 115 mEq/L (98-107)
[2020-03-12] MEDS: PANTOPRAZOLE SODIUM 40 MG/VIAL IV SCH (08:28)
[2020-03-12] MEDS: DOCUSATE SODIUM SUGAR FREE 100MG/10ML UDC PO SCH (08:28)
[2020-03-12] MEDS: AMLODIPINE 5MG TABLET PO SCH ×2 (08:29→21:00)
[2020-03-12] MEDS: POTASSIUM CHLORIDE 20MEQ TABLET SR PO SCH (08:29)
[2020-03-12] MEDS: LEVETIRACETAM 500MG PREMIX 100 ML IV SCH ×2 (08:33→20:51)
[2020-03-12] MEDS: DEXTROSE 5% WATER 1,000 ML IV SCH ×2 (13:33→17:07)
[2020-03-12] MEDS: LIPASE/PROTEASE/AMYLASE 4,200/14,200/24,600 UNITS CAP DR PO SCH ×2 (14:33→17:06)
[2020-03-12] MEDS: MICAFUNGIN 100 MG in SODIUM CHLORIDE 0.9% 100 ML IV SCH (14:34)
[2020-03-12] MEDS: HYDRALAZINE 20MG/ML VIAL IV PRN (18:58)
[2020-03-12] MEDS: VORICONAZOLE 200MG TABLET PO SCH (21:00)
[2020-03-12] MEDS: ATORVASTATIN CALCIUM 40MG TABLET PO SCH (21:00)
[2020-03-13] VITALS (12 sets, daily range): BP systolic 141–163; BP diastolic 64–85
[2020-03-13] MEDS: HYDRALAZINE 20MG/ML VIAL IV PRN ×2 (00:40→15:40)
[2020-03-13] MEDS: IPRATROPIUM/ALBUTEROL 0.5-3(2.5)MG/3ML NEB HHN SCH ×4 (01:39→20:37)
[2020-03-13] MEDS: CLONIDINE 0.1MG TABLET PO SCH ×3 (05:40→21:51)
[2020-03-13] MEDS: FUROSEMIDE 40MG/4ML VIAL IVP SCH ×2 (06:16→17:19)
[2020-03-13 07:04] LABS: BASOPHILS % 0.6 % (0.0-2.0); EOSINOPHILS % 1.2 % (0.0-5.0); HEMATOCRIT. 28.4 % (36.0-48.0); HEMOGLOBIN. 9.2 g/dL (12.0-16.0); LYMPHOCYTES % 13.7 % (20.0-50.0); MEAN CORPUSCULAR HEMOGLOBIN 27.2 pg (28.0-32.0); MEAN CORPUSCULAR VOLUME 83.8 fL (81.0-99.0); MEAN PLATELET VOLUME 10.2 fl (7.4-10.4); MONOCYTES % 6.7 % (2.0-8.0); NEUTROPHILS % 77.8 % (40.0-76.0); PLATELET 168 x1000/uL (130-400); RED BLOOD CELL COUNT 3.39 mill/uL (4.2-5.4); RED CELL DISTRIBUTION WIDTH 20.4 % (11.6-14.6)
[2020-03-13 07:29] LABS: CHLORIDE 115 mEq/L (98-107)
[2020-03-13] MEDS: DOCUSATE SODIUM SUGAR FREE 100MG/10ML UDC PO SCH (09:00)
[2020-03-13] MEDS: VORICONAZOLE 200MG TABLET PO SCH ×2 (09:00→21:00)
[2020-03-13] MEDS: AMLODIPINE 5MG TABLET PO SCH ×2 (09:00→21:00)
[2020-03-13] MEDS: POTASSIUM CHLORIDE 20MEQ TABLET SR PO SCH (09:00)
[2020-03-13] MEDS: PANTOPRAZOLE SODIUM 40 MG/VIAL IV SCH (09:10)
[2020-03-13] MEDS: LEVETIRACETAM 500MG PREMIX 100 ML IV SCH ×2 (09:10→21:50)
[2020-03-13] MEDS: LIPASE/PROTEASE/AMYLASE 4,200/14,200/24,600 UNITS CAP DR PO SCH ×3 (09:10→17:19)
[2020-03-13] MEDS ORDERED: POTASSIUM CHLORIDE INJ 40 MEQ in DEXT 5% WATER 250 ML IV ONE ×2 (10:30→17:00)
[2020-03-13] MEDS: DEXTROSE 5% WATER 1,000 ML IV SCH (13:49)
[2020-03-13] MEDS: LORAZEPAM 2MG/ML CPJ IV PRN (17:19)
[2020-03-13] MEDS: ATORVASTATIN CALCIUM 40MG TABLET PO SCH (21:00)
[2020-03-14] VITALS (12 sets, daily range): BP systolic 131–157; BP diastolic 52–80
[2020-03-14] MEDS: IPRATROPIUM/ALBUTEROL 0.5-3(2.5)MG/3ML NEB HHN SCH ×4 (01:33→20:43)
[2020-03-14] MEDS: CLONIDINE 0.1MG TABLET PO SCH ×3 (06:00→21:35)
[2020-03-14 06:50] LABS: CHLORIDE 116 mEq/L (98-107)
[2020-03-14 06:58] LABS: BASOPHILS % 0.6 % (0.0-2.0); EOSINOPHILS % 2.1 % (0.0-5.0); HEMOGLOBIN. 9.1 g/dL (12.0-16.0); LYMPHOCYTES % 10.6 % (20.0-50.0); MEAN CORPUSCULAR HEMOGLOBIN 27.5 pg (28.0-32.0); MEAN CORPUSCULAR VOLUME 84.6 fL (81.0-99.0); MEAN PLATELET VOLUME 10.2 fl (7.4-10.4); MONOCYTES % 7.3 % (2.0-8.0); NEUTROPHILS % 79.4 % (40.0-76.0); PLATELET 160 x1000/uL (130-400); RED BLOOD CELL COUNT 3.31 mill/uL (4.2-5.4); RED CELL DISTRIBUTION WIDTH 20.4 % (11.6-14.6)
[2020-03-14] MEDS: LIPASE/PROTEASE/AMYLASE 4,200/14,200/24,600 UNITS CAP DR PO SCH ×2 (08:00→12:59)
[2020-03-14] MEDS: FUROSEMIDE 40MG/4ML VIAL IVP SCH ×2 (08:26→17:15)
[2020-03-14] MEDS: LEVETIRACETAM 500MG PREMIX 100 ML IV SCH ×2 (08:39→21:34)
[2020-03-14] MEDS: PANTOPRAZOLE SODIUM 40 MG/VIAL IV SCH (08:39)
[2020-03-14] MEDS: HYDRALAZINE 20MG/ML VIAL IV PRN (08:55)
[2020-03-14] MEDS: VORICONAZOLE 200MG TABLET PO SCH ×2 (09:00→21:34)
[2020-03-14] MEDS: AMLODIPINE 5MG TABLET PO SCH ×2 (09:00→21:35)
[2020-03-14] MEDS: DOCUSATE SODIUM SUGAR FREE 100MG/10ML UDC PO SCH (09:00)
[2020-03-14] MEDS: POTASSIUM CHLORIDE 20MEQ TABLET SR PO SCH (09:00)
[2020-03-14] MEDS: DEXTROSE 5% WATER 1,000 ML IV SCH (10:52)
[2020-03-14] MEDS: LORAZEPAM 2MG/ML CPJ IV PRN (12:35)
[2020-03-14] MEDS ORDERED: POTASSIUM CHLORIDE INJ 40 MEQ in DEXT 5% WATER 250 ML IV NR (14:00)
[2020-03-15] VITALS (14 sets, daily range): BP systolic 97–147; BP diastolic 39–86
[2020-03-15] MEDS: IPRATROPIUM/ALBUTEROL 0.5-3(2.5)MG/3ML NEB HHN SCH ×4 (02:40→20:00)
[2020-03-15 05:34] LABS: CHLORIDE 115 mEq/L (98-107)
[2020-03-15] MEDS: CLONIDINE 0.1MG TABLET PO SCH ×3 (05:46→20:15)
[2020-03-15 06:19] LABS: BASOPHILS % 0.6 % (0.0-2.0); EOSINOPHILS % 1.6 % (0.0-5.0); HEMATOCRIT. 29.4 % (36.0-48.0); HEMOGLOBIN. 9.4 g/dL (12.0-16.0); LYMPHOCYTES % 11.1 % (20.0-50.0); MEAN CORPUSCULAR HEMOGLOBIN 27.1 pg (28.0-32.0); MEAN CORPUSCULAR VOLUME 84.5 fL (81.0-99.0); MEAN PLATELET VOLUME 10.5 fl (7.4-10.4); MONOCYTES % 7.3 % (2.0-8.0); NEUTROPHILS % 79.4 % (40.0-76.0); PLATELET 181 x1000/uL (130-400); RED BLOOD CELL COUNT 3.48 mill/uL (4.2-5.4); RED CELL DISTRIBUTION WIDTH 20.7 % (11.6-14.6)
[2020-03-15] MEDS: FUROSEMIDE 40MG/4ML VIAL IVP SCH ×2 (06:42→17:54)
[2020-03-15] MEDS: LIPASE/PROTEASE/AMYLASE 4,200/14,200/24,600 UNITS CAP DR PO SCH ×2 (08:23→14:48)
[2020-03-15] MEDS: DOCUSATE SODIUM SUGAR FREE 100MG/10ML UDC PO SCH (08:23)
[2020-03-15] MEDS: VORICONAZOLE 200MG TABLET PO SCH ×2 (08:23→20:10)
[2020-03-15] MEDS: POTASSIUM CHLORIDE 20MEQ TABLET SR PO SCH (08:24)
[2020-03-15] MEDS: AMLODIPINE 5MG TABLET PO SCH ×2 (08:24→20:15)
[2020-03-15] MEDS: DEXTROSE 5% WATER 1,000 ML IV SCH (10:17)
[2020-03-15] MEDS ORDERED: SODIUM CHLORIDE 0.9% 10ML VIAL ONE (10:52)
[2020-03-15] MEDS ORDERED: ETOMIDATE 2MG/ML 10ML VIAL IV ONE (10:52)
[2020-03-15] MEDS ORDERED: VECURONIUM BROMIDE 10 MG/VIAL IV ONE (10:52)
[2020-03-15] MEDS ORDERED: SUCCINYLCHOLINE CHLORIDE 200MG/10ML IV ONE (10:52)
[2020-03-15] MEDS: LORAZEPAM 2MG/ML CPJ IV PRN (11:41)
[2020-03-16] VITALS (11 sets, daily range): BP systolic 112–162; BP diastolic 24–88
[2020-03-16] MEDS: IPRATROPIUM/ALBUTEROL 0.5-3(2.5)MG/3ML NEB HHN SCH ×4 (00:20→20:03)
[2020-03-16] MEDS: DEXTROSE 5% WATER 1,000 ML IV SCH ×2 (00:30→17:28)
[2020-03-16] MEDS: CLONIDINE 0.1MG TABLET PO SCH ×3 (05:19→22:02)
[2020-03-16 06:37] LABS: BASOPHILS % 0.5 % (0.0-2.0); EOSINOPHILS % 1.9 % (0.0-5.0); HEMATOCRIT. 26.7 % (36.0-48.0); HEMOGLOBIN. 8.7 g/dL (12.0-16.0); LYMPHOCYTES % 11.7 % (20.0-50.0); MEAN CORPUSCULAR HEMOGLOBIN 27.3 pg (28.0-32.0); MEAN CORPUSCULAR VOLUME 84.1 fL (81.0-99.0); MEAN PLATELET VOLUME 10.3 fl (7.4-10.4); NEUTROPHILS % 78.9 % (40.0-76.0); PLATELET 165 x1000/uL (130-400); RED BLOOD CELL COUNT 3.18 mill/uL (4.2-5.4)
[2020-03-16 06:40] LABS: CHLORIDE 114 mEq/L (98-107)
[2020-03-16] MEDS ORDERED: POTASSIUM CHLORIDE 20MEQ/PACKET PO NR (07:45)
[2020-03-16] MEDS: LIPASE/PROTEASE/AMYLASE 4,200/14,200/24,600 UNITS CAP DR PO SCH ×5 (08:00→17:35)
[2020-03-16] MEDS: AMLODIPINE 5MG TABLET PO SCH ×2 (09:00→22:03)
[2020-03-16] MEDS: FUROSEMIDE 40MG/4ML VIAL IVP SCH ×2 (09:18→11:15)
[2020-03-16] MEDS: VORICONAZOLE 200MG TABLET PO SCH (09:18)
[2020-03-16] MEDS: DOCUSATE SODIUM SUGAR FREE 100MG/10ML UDC PO SCH (09:19)
[2020-03-16] MEDS: POTASSIUM CHLORIDE 20MEQ TABLET SR PO SCH (09:20)
[2020-03-16] MEDS ORDERED: POTASSIUM CHLORIDE INJ 40 MEQ in DEXT 5% WATER 250 ML IV NR (10:00)
[2020-03-16] MEDS: LORAZEPAM 2MG/ML CPJ IV PRN (18:17)
[2020-03-16] MEDS: MORPHINE SULFATE 2 MG/ML CPJ (NOT FOR IM USE) IV PRN (18:17)
[2020-03-17] VITALS (12 sets, daily range): BP systolic 108–143; BP diastolic 71–97
[2020-03-17] MEDS: IPRATROPIUM/ALBUTEROL 0.5-3(2.5)MG/3ML NEB HHN SCH ×4 (01:50→20:28)
[2020-03-17] MEDS: CLONIDINE 0.1MG TABLET PO SCH ×3 (05:53→21:33)
[2020-03-17 07:11] LABS: BASOPHILS % 0.6 % (0.0-2.0); HEMATOCRIT. 27.8 % (36.0-48.0); HEMOGLOBIN. 8.9 g/dL (12.0-16.0); LYMPHOCYTES % 14.1 % (20.0-50.0); MEAN CORPUSCULAR HEMOGLOBIN 27.1 pg (28.0-32.0); MEAN CORPUSCULAR VOLUME 84.7 fL (81.0-99.0); MEAN PLATELET VOLUME 9.7 fl (7.4-10.4); MONOCYTES % 7.6 % (2.0-8.0); NEUTROPHILS % 75.7 % (40.0-76.0); PLATELET 177 x1000/uL (130-400); RED BLOOD CELL COUNT 3.28 mill/uL (4.2-5.4); RED CELL DISTRIBUTION WIDTH 21.3 % (11.6-14.6)
[2020-03-17 07:24] LABS: CHLORIDE 112 mEq/L (98-107)
[2020-03-17] MEDS: DOCUSATE SODIUM SUGAR FREE 100MG/10ML UDC PO SCH (09:00)
[2020-03-17] MEDS: LIPASE/PROTEASE/AMYLASE 4,200/14,200/24,600 UNITS CAP DR PO SCH ×3 (09:14→17:23)
[2020-03-17] MEDS: FUROSEMIDE 40MG/4ML VIAL IVP SCH (09:15)
[2020-03-17] MEDS: POTASSIUM CHLORIDE 20MEQ TABLET SR PO SCH (09:15)
[2020-03-17] MEDS: VORICONAZOLE 200MG TABLET GT SCH ×2 (09:15→21:33)
[2020-03-17] MEDS: AMLODIPINE 5MG TABLET PO SCH ×2 (09:43→21:33)
[2020-03-17] MEDS: MORPHINE SULFATE 2 MG/ML CPJ (NOT FOR IM USE) IV PRN (10:21)
[2020-03-17] MEDS: LORAZEPAM 2MG/ML CPJ IV PRN (10:21)
[2020-03-17] MEDS: DEXTROSE 5% WATER 1,000 ML IV SCH (16:17)
[2020-03-18] VITALS (12 sets, daily range): BP systolic 121–145; BP diastolic 72–105
[2020-03-18] MEDS: IPRATROPIUM/ALBUTEROL 0.5-3(2.5)MG/3ML NEB HHN SCH ×4 (01:29→20:52)
[2020-03-18] MEDS: CLONIDINE 0.1MG TABLET PO SCH ×3 (05:59→20:38)
[2020-03-18 06:13] LABS: BASOPHILS % 0.5 % (0.0-2.0); EOSINOPHILS % 2.3 % (0.0-5.0); HEMATOCRIT. 26.7 % (36.0-48.0); HEMOGLOBIN. 8.8 g/dL (12.0-16.0); MEAN CORPUSCULAR HEMOGLOBIN 27.7 pg (28.0-32.0); MEAN CORPUSCULAR VOLUME 84.3 fL (81.0-99.0); MONOCYTES % 8.4 % (2.0-8.0); NEUTROPHILS % 70.8 % (40.0-76.0); PLATELET 176 x1000/uL (130-400); RED BLOOD CELL COUNT 3.17 mill/uL (4.2-5.4); RED CELL DISTRIBUTION WIDTH 20.6 % (11.6-14.6)
[2020-03-18 06:30] LABS: CHLORIDE 110 mEq/L (98-107)
[2020-03-18] MEDS: LIPASE/PROTEASE/AMYLASE 4,200/14,200/24,600 UNITS CAP DR PO SCH ×3 (08:00→18:00)
[2020-03-18] MEDS: VORICONAZOLE 200MG TABLET GT SCH ×2 (08:36→20:38)
[2020-03-18] MEDS: POTASSIUM CHLORIDE 20MEQ TABLET SR PO SCH (08:36)
[2020-03-18] MEDS: DOCUSATE SODIUM SUGAR FREE 100MG/10ML UDC PO SCH (08:36)
[2020-03-18] MEDS: AMLODIPINE 5MG TABLET PO SCH ×2 (08:37→20:38)
[2020-03-18] MEDS ORDERED: POTASSIUM CHLORIDE INJ 40 MEQ in DEXT 5% WATER 250 ML IV SCH (09:00)
[2020-03-18] MEDS: FUROSEMIDE 40MG/4ML VIAL IVP SCH (09:11)
[2020-03-18] MEDS ORDERED: DIATR MEGLU/DIATRIZOATE SOLN 30ML ONE (14:29)
[2020-03-18] MEDS: DEXTROSE 5% WATER 1,000 ML IV SCH (15:30)
[2020-03-19] VITALS (13 sets, daily range): BP systolic 123–151; BP diastolic 75–94
[2020-03-19] MEDS: IPRATROPIUM/ALBUTEROL 0.5-3(2.5)MG/3ML NEB HHN SCH ×3 (02:34→13:52)
[2020-03-19 06:00] LABS: BASOPHILS % 0.7 % (0.0-2.0); EOSINOPHILS % 1.8 % (0.0-5.0); HEMATOCRIT. 30.4 % (36.0-48.0); HEMOGLOBIN. 9.9 g/dL (12.0-16.0); LYMPHOCYTES % 16.8 % (20.0-50.0); MEAN CORPUSCULAR HEMOGLOBIN 27.6 pg (28.0-32.0); MEAN CORPUSCULAR VOLUME 84.7 fL (81.0-99.0); MEAN PLATELET VOLUME 9.6 fl (7.4-10.4); MONOCYTES % 9.3 % (2.0-8.0); NEUTROPHILS % 71.4 % (40.0-76.0); PLATELET 187 x1000/uL (130-400); RED BLOOD CELL COUNT 3.58 mill/uL (4.2-5.4); RED CELL DISTRIBUTION WIDTH 21.1 % (11.6-14.6)
[2020-03-19 06:11] LABS: CHLORIDE 108 mEq/L (98-107)
[2020-03-19] MEDS: LIPASE/PROTEASE/AMYLASE 4,200/14,200/24,600 UNITS CAP DR PO SCH ×3 (08:00→17:18)
[2020-03-19] MEDS: DOCUSATE SODIUM SUGAR FREE 100MG/10ML UDC PO SCH (09:00)
[2020-03-19] MEDS: FUROSEMIDE 40MG/4ML VIAL IVP SCH (10:26)
[2020-03-19] MEDS: VORICONAZOLE 200MG TABLET GT SCH ×2 (10:27→21:39)
[2020-03-19] MEDS: AMLODIPINE 5MG TABLET PO SCH ×2 (10:27→21:33)
[2020-03-19] MEDS: POTASSIUM CHLORIDE 20MEQ TABLET SR PO SCH (10:28)
[2020-03-19] MEDS: DEXTROSE 5% WATER 1,000 ML IV SCH (10:41)
[2020-03-19] MEDS ORDERED: POTASSIUM CHLORIDE INJ 40 MEQ in DEXT 5% WATER 250 ML IV SCH (12:00)
[2020-03-19] MEDS: CLONIDINE 0.1MG TABLET PO SCH ×2 (13:38→23:06)
[2020-03-20] VITALS (11 sets, daily range): BP systolic 117–151; BP diastolic 72–87
[2020-03-20] MEDS: IPRATROPIUM/ALBUTEROL 0.5-3(2.5)MG/3ML NEB HHN SCH ×4 (00:58→20:06)
[2020-03-20] MEDS: CLONIDINE 0.1MG TABLET PO SCH ×3 (06:21→22:49)
[2020-03-20] MEDS: FUROSEMIDE 40MG/4ML VIAL IVP SCH (06:21)
[2020-03-20] MEDS: POTASSIUM CHLORIDE 20MEQ/PACKET PO SCH (08:11)
[2020-03-20] MEDS: LIPASE/PROTEASE/AMYLASE 4,200/14,200/24,600 UNITS CAP DR PO SCH ×3 (08:11→18:26)
[2020-03-20] MEDS: VORICONAZOLE 200MG TABLET GT SCH ×2 (08:11→22:49)
[2020-03-20] MEDS: DOCUSATE SODIUM SUGAR FREE 100MG/10ML UDC PO SCH (08:11)
[2020-03-20] MEDS: ASCORBIC ACID 500 MG TABLET PO SCH (08:12)
[2020-03-20] MEDS: AMLODIPINE 5MG TABLET PO SCH ×2 (08:12→22:49)
[2020-03-20] MEDS: ZINC SULFATE 220 MG ( 50 ) CAPSULE PO SCH (08:12)
[2020-03-20] MEDS: DEXTROSE 5% WATER 1,000 ML IV SCH (08:13)
[2020-03-20] MEDS: ATORVASTATIN CALCIUM 40MG TABLET PO SCH (22:48)
[2020-03-21] VITALS (13 sets, daily range): BP systolic 114–166; BP diastolic 65–92
[2020-03-21] MEDS: ACETAMINOPHEN 650MG/20.3ML UDC PO PRN (00:59)
[2020-03-21] MEDS: IPRATROPIUM/ALBUTEROL 0.5-3(2.5)MG/3ML NEB HHN SCH ×4 (02:13→20:39)
[2020-03-21] MEDS: CLONIDINE 0.1MG TABLET PO SCH ×3 (07:44→21:54)
[2020-03-21] MEDS: LIPASE/PROTEASE/AMYLASE 4,200/14,200/24,600 UNITS CAP DR PO SCH ×3 (07:44→18:23)
[2020-03-21] MEDS: FUROSEMIDE 40MG/4ML VIAL IVP SCH (08:39)
[2020-03-21] MEDS: POTASSIUM CHLORIDE 20MEQ/PACKET PO SCH (08:39)
[2020-03-21] MEDS: DOCUSATE SODIUM SUGAR FREE 100MG/10ML UDC PO SCH (08:39)
[2020-03-21] MEDS: AMLODIPINE 5MG TABLET PO SCH ×2 (08:40→21:27)
[2020-03-21] MEDS: ZINC SULFATE 220 MG ( 50 ) CAPSULE PO SCH (08:40)
[2020-03-21] MEDS: ASCORBIC ACID 500 MG TABLET PO SCH (08:40)
[2020-03-21] MEDS: LORAZEPAM 2MG/ML CPJ IV PRN (10:38)
[2020-03-21] MEDS: ATORVASTATIN CALCIUM 40MG TABLET PO SCH (21:27)
[2020-03-21] MEDS: VORICONAZOLE 200MG TABLET PO SCH (21:27)
[2020-03-21] MEDS ORDERED: DEXTROSE 5% WATER 1,000 ML IV SCH (22:00)
[2020-03-22] VITALS (12 sets, daily range): BP systolic 109–154; BP diastolic 53–91
[2020-03-22] MEDS: IPRATROPIUM/ALBUTEROL 0.5-3(2.5)MG/3ML NEB HHN SCH ×2 (02:39→08:01)
[2020-03-22 05:40] LABS: CHLORIDE 106 mEq/L (98-107)
[2020-03-22 06:29] LABS: BASOPHILS % 0.4 % (0.0-2.0); HEMATOCRIT. 28.3 % (36.0-48.0); HEMOGLOBIN. 9.2 g/dL (12.0-16.0); MEAN CORPUSCULAR HEMOGLOBIN 27.3 pg (28.0-32.0); MEAN CORPUSCULAR VOLUME 83.6 fL (81.0-99.0); MEAN PLATELET VOLUME 9.4 fl (7.4-10.4); MONOCYTES % 10.2 % (2.0-8.0); NEUTROPHILS % 68.4 % (40.0-76.0); PLATELET 220 x1000/uL (130-400); RED BLOOD CELL COUNT 3.38 mill/uL (4.2-5.4); RED CELL DISTRIBUTION WIDTH 20.6 % (11.6-14.6)
[2020-03-22] MEDS: CLONIDINE 0.1MG TABLET PO SCH ×3 (06:50→21:46)
[2020-03-22] MEDS: LIPASE/PROTEASE/AMYLASE 4,200/14,200/24,600 UNITS CAP DR PO SCH ×3 (08:12→17:16)
[2020-03-22] MEDS: ASCORBIC ACID 500 MG TABLET PO SCH (08:13)
[2020-03-22] MEDS: POTASSIUM CHLORIDE 20MEQ/PACKET PO SCH (08:13)
[2020-03-22] MEDS: ZINC SULFATE 220 MG ( 50 ) CAPSULE PO SCH (08:14)
[2020-03-22] MEDS: DOCUSATE SODIUM SUGAR FREE 100MG/10ML UDC PO SCH (08:14)
[2020-03-22] MEDS: FUROSEMIDE 40MG TABLET PO SCH (08:14)
[2020-03-22] MEDS: VORICONAZOLE 200MG TABLET PO SCH ×2 (08:15→20:34)
[2020-03-22] MEDS: ACETAMINOPHEN 650MG/20.3ML UDC PO PRN (09:24)
[2020-03-22] MEDS: AMLODIPINE 5MG TABLET PO SCH ×2 (09:32→20:36)
[2020-03-22] MEDS: CEFEPIME 1,000 MG in DEXTROSE 5% WATER 50 ML IV SCH (13:39)
[2020-03-22] MEDS: ATORVASTATIN CALCIUM 40MG TABLET PO SCH (20:34)
[2020-03-23] VITALS (12 sets, daily range): BP systolic 109–159; BP diastolic 55–95
[2020-03-23] MEDS: CEFEPIME 1,000 MG in DEXTROSE 5% WATER 50 ML IV SCH ×2 (00:12→14:02)
[2020-03-23] MEDS: CLONIDINE 0.1MG TABLET PO SCH ×3 (05:30→21:17)
[2020-03-23 07:24] LABS: BASOPHILS % 0.8 % (0.0-2.0); EOSINOPHILS % 1.1 % (0.0-5.0); HEMATOCRIT. 28.6 % (36.0-48.0); HEMOGLOBIN. 9.4 g/dL (12.0-16.0); LYMPHOCYTES % 17.5 % (20.0-50.0); MEAN CORPUSCULAR HEMOGLOBIN 27.6 pg (28.0-32.0); MEAN CORPUSCULAR VOLUME 84.1 fL (81.0-99.0); MEAN PLATELET VOLUME 9.1 fl (7.4-10.4); MONOCYTES % 11.1 % (2.0-8.0); NEUTROPHILS % 69.5 % (40.0-76.0); PLATELET 234 x1000/uL (130-400); RED CELL DISTRIBUTION WIDTH 20.5 % (11.6-14.6)
[2020-03-23 07:50] LABS: CHLORIDE 106 mEq/L (98-107)
[2020-03-23] MEDS: LIPASE/PROTEASE/AMYLASE 4,200/14,200/24,600 UNITS CAP DR PO SCH ×3 (08:55→18:27)
[2020-03-23] MEDS: DOCUSATE SODIUM SUGAR FREE 100MG/10ML UDC PO SCH (08:56)
[2020-03-23] MEDS: VORICONAZOLE 200MG TABLET PO SCH ×2 (08:57→20:00)
[2020-03-23] MEDS: AMLODIPINE 5MG TABLET PO SCH ×2 (08:57→20:00)
[2020-03-23] MEDS: FUROSEMIDE 40MG TABLET PO SCH (08:57)
[2020-03-23] MEDS: ASCORBIC ACID 500 MG TABLET PO SCH (08:57)
[2020-03-23] MEDS: ZINC SULFATE 220 MG ( 50 ) CAPSULE PO SCH (08:57)
[2020-03-23] MEDS: POTASSIUM CHLORIDE 20MEQ/PACKET PO SCH (08:57)
[2020-03-23] MEDS: ACETAMINOPHEN 650MG/20.3ML UDC PO PRN (11:44)
[2020-03-23] MEDS ORDERED: LORAZEPAM 2MG/ML CPJ IV PRN (17:30)
[2020-03-23] MEDS: ATORVASTATIN CALCIUM 40MG TABLET PO SCH (20:00)
[2020-03-24] VITALS (13 sets, daily range): BP systolic 110–170; BP diastolic 71–111
[2020-03-24] MEDS: CEFEPIME 1,000 MG in DEXTROSE 5% WATER 50 ML IV SCH ×2 (01:06→13:08)
[2020-03-24] MEDS: CLONIDINE 0.1MG TABLET PO SCH ×2 (05:28→15:49)
[2020-03-24 06:25] LABS: BASOPHILS % 0.8 % (0.0-2.0); EOSINOPHILS % 1.2 % (0.0-5.0); HEMATOCRIT. 29.8 % (36.0-48.0); HEMOGLOBIN. 9.7 g/dL (12.0-16.0); LYMPHOCYTES % 17.9 % (20.0-50.0); MEAN CORPUSCULAR HEMOGLOBIN 27.1 pg (28.0-32.0); MEAN CORPUSCULAR VOLUME 83.6 fL (81.0-99.0); MEAN PLATELET VOLUME 9.1 fl (7.4-10.4); MONOCYTES % 9.4 % (2.0-8.0); NEUTROPHILS % 70.7 % (40.0-76.0); PLATELET 243 x1000/uL (130-400); RED BLOOD CELL COUNT 3.57 mill/uL (4.2-5.4); RED CELL DISTRIBUTION WIDTH 20.2 % (11.6-14.6)
[2020-03-24 07:25] LABS: CHLORIDE 107 mEq/L (98-107)
[2020-03-24] MEDS: FUROSEMIDE 40MG TABLET PO SCH (08:37)
[2020-03-24] MEDS: VORICONAZOLE 200MG TABLET PO SCH (08:37)
[2020-03-24] MEDS: ZINC SULFATE 220 MG ( 50 ) CAPSULE PO SCH (08:37)
[2020-03-24] MEDS: ASCORBIC ACID 500 MG TABLET PO SCH (08:37)
[2020-03-24] MEDS: DOCUSATE SODIUM SUGAR FREE 100MG/10ML UDC PO SCH (08:38)
[2020-03-24] MEDS: LIPASE/PROTEASE/AMYLASE 4,200/14,200/24,600 UNITS CAP DR PO SCH ×3 (08:38→18:35)
[2020-03-24] MEDS: POTASSIUM CHLORIDE 20MEQ/PACKET PO SCH (08:38)
[2020-03-24] MEDS: AMLODIPINE 5MG TABLET PO SCH (08:38)
[2020-03-24] MEDS ORDERED: LEVO500T2 PO (11:56)
[2020-03-24] MEDS ORDERED: LINEZOLID 600 MG PREMIX 300 ML IV SCH (14:00)
[2020-03-24] MEDS ORDERED: AMLODIPINE 10MG TABLET PO SCH (21:00)
== END 2020-03-24 23:39 | DRG 4 ==
LOC: ER 10:09 → EDBEDREQ 10:43 → 5EST 10:45 → EDBEDREQTM 10:48 → EDBEDREQ 10:48 → 5EST 02-16 08:00
PROVIDERS: ADMIT Internal Medicine; ATTEND Internal Medicine
PROC: 5A1955Z Respiratory Ventilation, Greater than 96 Consecutive Hours (ICD-10-PCS; 2020-02-14)
PROC: 0B113F4 Bypass Trachea to Cutaneous with Tracheostomy Device, Percutaneous Approach (ICD-10-PCS; 2020-02-14)
PROC: 00U20JZ Supplement Dura Mater with Synthetic Substitute, Open Approach (ICD-10-PCS; 2020-02-14)
PROC: 0NU00JZ Supplement Skull with Synthetic Substitute, Open Approach (ICD-10-PCS; 2020-02-14)
PROC: 02H Heart and Great Vessels, Insertion (ICD-10-PCS; 2020-02-14)
PROC: 0GBJ0ZZ Excision of Thyroid Gland Isthmus, Open Approach (ICD-10-PCS; 2020-02-22)
PROC: 0DJ08ZZ Inspection of Upper Intestinal Tract, Via Natural or Artificial Opening Endoscopic (ICD-10-PCS; 2020-02-23)
PROC: 0BH18EZ Insertion of Endotracheal Airway into Trachea, Via Natural or Artificial Opening Endoscopic (ICD-10-PCS; 2020-02-28)
PROC: 0DH60UZ Insertion of Feeding Device into Stomach, Open Approach (ICD-10-PCS; 2020-03-06)
PROC: 00C70ZZ Extirpation of Matter from Cerebral Hemisphere, Open Approach (ICD-10-PCS; principal; 2020-03-22)
PROC: 00H602Z Insertion of Monitoring Device into Cerebral Ventricle, Open Approach (ICD-10-PCS; 2020-03-22)
PROC: 4A107BD Monitoring of Intracranial Pressure, Via Natural or Artificial Opening (ICD-10-PCS; 2020-03-22)
DX: A41.9 Sepsis, unspecified organism (principal); I61.5 Nontraumatic intracerebral hemorrhage, intraventricular; G93.49 Other encephalopathy; I50.33 Acute on chronic diastolic (congestive) heart failure; J18.9 Pneumonia, unspecified organism; E44.0 Moderate protein-calorie malnutrition; D68.69 Other thrombophilia; E11.22 Type 2 diabetes mellitus with diabetic chronic kidney disease; J96.01 Acute respiratory failure with hypoxia; J96.00 Acute respiratory failure, unspecified whether with hypoxia or hypercapnia; I16.1 Hypertensive emergency; E66.01 Morbid (severe) obesity due to excess calories; E78.5 Hyperlipidemia, unspecified; E11.9 Type 2 diabetes mellitus without complications; I25.10 Atherosclerotic heart disease of native coronary artery without angina pectoris; E87.0 Hyperosmolality and hypernatremia; I13.0 Hypertensive heart and chronic kidney disease with heart failure and stage 1 through stage 4 chronic kidney disease, or unspecified chronic kidney disease; Z20.828 Contact with and (suspected) exposure to other viral communicable diseases; I48.20 Chronic atrial fibrillation, unspecified; K29.70 Gastritis, unspecified, without bleeding; R13.10 Dysphagia, unspecified; Z66 Do not resuscitate; Z79.01 Long term (current) use of anticoagulants; Z68.44 Body mass index [BMI] 60.0-69.9, adult; Z82.49 Family history of ischemic heart disease and other diseases of the circulatory system; Z86.73 Personal history of transient ischemic attack (TIA), and cerebral infarction without residual deficits; Z99.11 Dependence on respirator [ventilator] status
CPT/HCPCS: 36415; 36600; 71045; 74018; 76937; 78610; 80048; 80053; 80305; 80320; 81003; 82040; 82375; 82550; 82805; 82962; 83721; 83880; 84134; 84145; 84484; 85025; 86850; 86900; 87070; 87077; 87107; 87186; 87635; 88304; 93005; 93306; 94003; 94640; 99291; A9512; C1713; C1725; C9113; J0330; J0360; J0690; J0692; J1100; J1450; J1940; J1953; J2020; J2060; J2150; J2248; J2250; J2270; J2405; J2543; J2704; J3010; J3480; J3490; J7050; J7060; J7070; J7120; J7608; Q9963; Q9967; G0480; U0003-CS